=== PATIENT | female | born 1955 | race Caucasian/White ===

== ENCOUNTER 2017-03-13 10:46 | Day surgery (SDC) | payer OTHER, SELFPAY ==
[2017-03-13 11:07] VITALS: BP 142/60; PULSE 57; RESP 18; TEMP 36.6; O2SAT 100; BMI 20.6
--- NOTE | 2017-03-13 12:00 | RAD_ITS ---
PROCEDURE: Caudal block under fluoroscopic guidance. DATE OF EXAMINATION: March 13, 2017. INDICATION: Female, 62 years old. Pain PHYSICIAN: Jose Quijano M.D. FLUOROSCOPY TIME (if supplied): (0:08) minutes/seconds RADIATION DOSAGE (If Supplied By Facility): CTDIvol = ( ) mGy, DLP = ( ) mGycm PROCEDURE/TECHNIQUE: 2 procedural images were performed and sent for interpretation. Both studies demonstrate evidence of contrast in the region of the distal sacrum consistent with caudal block. Please refer to the procedural report for further details. RAD/Fluor Guidance for Spine Inj IMPRESSION: Caudal block in the OR. Electronically Signed: Oni Matthew DO at 13:37 EST Tel [phone], Service support ,
[2017-03-13] MEDS: Bupivacaine 0.25% 30 ML Vial (12:03)
[2017-03-13] MEDS: MethylPREDNISolone Acetate 80 MG/ML Vial (12:03)
[2017-03-13 12:14] VITALS: BP 118/66; BP 142/60; PULSE 58; RESP 16; TEMP 36.6; O2SAT 99
[2017-03-13 12:20] VITALS: BP 118/74; BP 142/60; PULSE 62; RESP 16; O2SAT 97
[2017-03-13 12:25] VITALS: BP 122/83; BP 142/60; PULSE 62; RESP 16; O2SAT 97
[2017-03-13 12:30] VITALS: BP 142/60; BP 144/79; PULSE 58; RESP 16; TEMP 36.8; O2SAT 96
[2017-03-13 12:53] VITALS: BP 142/60
--- NOTE | 2017-03-13 14:35 | OP.PCM_ITS ---
Problem List (1) DDD (degenerative disc disease), lumbosacral Status: Chronic (2) Radiculopathy of lumbosacral region Status: Chronic Report of Operation Date of Procedure: 03/13/17 Pre-Operative Diagnosis: Lumbosacral radiculopathy, lumbosacral degenerative disc disease, lumbosacral spinal stenosis Post-Operative Diagnosis: Lumbosacral radiculopathy, lumbosacral degenerative disc disease, lumbosacral spinal stenosis Surgery/Procedure Performed:: Diagnostic/therapeutic caudal epidural steroid injection Description of Surgical Findings:: PROCEDURE: Diagnostic/therapeutic caudal epidural steroid injection PREOPERATIVE DIAGNOSIS: Lumbosacral radiculopathy, lumbosacral degenerative disc disease, lumbosacral spinal stenosis POSTOPERATIVE DIAGNOSIS: Lumbosacral radiculopathy, lumbosacral degenerative disc disease, lumbosacral spinal stenosis ANESTHESIA: MAC COMPLICATIONS: None BLOOD LOSS: Minimal PROCEDURE IN DETAIL: History and physical today was reviewed. Risks and benefits of the procedure were explained. The patient understood, agreed to our procedure, and informed consent was obtained. IV inserted per routine protocol. The patient was taken to the operating room, placed in a prone position with a pillow positioned underneath the abdomen. Lower back and tailbone area was prepped and draped in a sterile fashion using iodine ?3 under fluoroscopy guidance on the lateral view the caudal space was identified the skin and subcutaneous tissue and size approximately 3 cc of 1% lidocaine using a 25-gauge regular needle under direct visualization with fluoroscopy using a 22-gauge 3-1/2 inch spinal needle the needle was advanced via the skin through the sacral hiatus the peroneal passed through the sacrococcygeal ligament advanced approximately S4 area after negative aspiration for blood or CSF a total of 3 cc of contrast were injected to confirm correct placement of the needle as well as cephalad spread the spread was followed to approximately L5 area after confirmation AP as well as lateral view repeated negative aspiration a total of 15 cc of preservative-free 0.125% Marcaine with 80 mg of Depo-Medrol was injected easily. The needles were then removed intact. The patient experienced no signs or symptoms intrathecal, intravascular injection. The patient experienced no paraesthesia. The procedure was completed without any apparent difficult, any complication. The patient appeared to tolerate well. ASSESSMENT AND PLAN: This is a 62-year-old female with lumbosacral radiculopathy, lumbosacral degenerative disc disease, lumbosacral spinal stenosis status post diagnostic/ therapeutic caudal epidural steroid injection. The patient will continue her current medications. The patient will follow in approximately 2 weeks for possible repeat of the procedure if indicated.
== END 2017-03-13 12:55 | disposition home or self-care (01) ==
LOC: SDC 10:47 → AC 10:48
PROVIDERS: Family Provider Family Medicine; PCP Family Medicine; Visit Provider Anesthesiology Pain Medicine
PROC: 3E0S3BZ Introduction of Anesthetic Agent into Epidural Space, Percutaneous Approach (ICD-10-PCS; CPT 62282; principal; 2017-03-13 11:55)
DX: M51.17 Intervertebral disc disorders with radiculopathy, lumbosacral region (principal); M48.07 Spinal stenosis, lumbosacral region; M79.7 Fibromyalgia
CPT/HCPCS: 01935; 62323; 64483; 77003; J7120; J3490

== ENCOUNTER → 2017-10-20 07:59 | Outpatient (CLI) | payer OTHER, SELFPAY ==
--- NOTE | 2017-10-20 08:32 | BI_ITS ---
MAMMOGRAPHY - BILATERAL SCREENING REASON FOR EXAM: Female, 62 years old. Routine annual screening examination. PERTINENT HISTORY: Non-contributory. TECHNIQUE: Digital bilateral breast janell (3D mammographic acquisition) in the CC and MLO projections. 2-D mediolateral oblique (MLO) and craniocaudad (CC) views of both breasts were obtained. CAD: Full Field Digital Mammography with Computer Added Detection was performed. COMPARISON: Comparison is made with prior study dated October 17, 2016 FINDINGS: Breast Composition: There are scattered areas of fibroglandular density. There are no dominant masses or suspicious calcifications. No other significant abnormalities are identified. There has been no significant change since the prior study. BI/SCREENING MAMM (CAD), BILAT IMPRESSION: Stable bilateral screening mammogram. Yearly follow-up mammogram recommended. (A) ASSESSMENT CATEGORY: BIRADS Category 1: Negative. A letter regarding these results will be sent to the patient by the facility within 30 days. Approximately 10% of breast cancers are not detected by mammography. A normal mammogram should not delay biopsy of a clinically suspicious abnormality. [id number] Electronically Signed: Shane Goode MD at 13:26 EDT Tel [phone], Service support ,
[2017-10-20 11:39] LABS: ALB/GLOB Ratio 1.2 RATIO (0.9-2.4); AST(SGOT) 16 U/L (15-37); Alanine Aminotransfer ALT/SGPT 18 U/L (13-56); Alkaline Phosphatase 90 U/L (45-117); Anion Gap 8 (5-15); BUN 13 mg/dL (7-18); BUN/Creat Ratio 20.1 RATIO (10-20); Calcium,Total 8.8 mg/dL (8.5-10.1); Chloride 106 mmol/L (98-107); Cholesterol 254 mg/dL (200); Creatinine, Serum 0.65 mg/dL (0.55-1.02); EST Glomerular Filtration Rate 98 mL/min (>60); Est Glom Filt Rate - Afr Amer 119 mL/min (>60); Globulin 3.3 g/dL (2.2-4.2); Glucose 73 mg/dL (74-106); High Density Lipoprotein 66 mg/dL; Potassium 3.7 mmol/L (3.5-5.1); Protein, Total 7.3 g/dL (6.4-8.2); Sodium Level 143 mmol/L (136-145); T4 Total, Thyroxin 8.9 ug/dL (4.8-13.9); Thyroid Stim Hormone (TSH) 2.31 uIU/mL (0.358-3.74); Triglycerides 79 mg/dL; Very Low Density Lipoprotein 16 mg/dL (5-40)
== END ==
PROVIDERS: Family Provider Family Medicine; PCP Family Medicine; Visit Provider Nurse Practitioner Adult Health
DX: Z01.419 Encounter for gynecological examination (general) (routine) without abnormal findings (principal); Z12.31 Encounter for screening mammogram for malignant neoplasm of breast; E78.2 Mixed hyperlipidemia; E03.9 Hypothyroidism, unspecified; H04.123 Dry eye syndrome of bilateral lacrimal glands
CPT/HCPCS: 36415; 77063; 77067; 80053; 80061; 84436; 84439; 84443; 84480

== ENCOUNTER 2018-01-29 08:30 | Outpatient (RCR) | payer OTHER, SELFPAY ==
--- NOTE | 2017-02-22 12:41 | MASS.EVAL ---
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 She was referred to the [facility] facility for a massotherapy evaluation by Sherie Alcazar NP with the diagnosis of myofacial pain dysfunction syndrome. Vijaya presents today with the symptoms of tension and pain in her neck, upper, lower back, hips and legs. She reports having a history of chronic back pain, spinal scoliosis and radiating pain in her legs. She reports having minimal limitations during her daily activities currently. OBJECTIVE: Upon observation Vijaya has poor posture with her head forward and shoulders forward from the neutral position in sitting and standing. After examination and palpation I found Vijaya to have very high muscle tension in her scalenes, trapezius, rhomboids, and sub occipitals with restrictions in cervical ROM. Her thoracic paraspinals were tender with restrictions from T7-T12. Her hips, hamstrings and lumbar muscles were also very tight with tender points. The first treatment consisted of a one hour massage to her full body with myofascial release and compression techniques. ASSESSMENT: I feel that Vijaya is a good candidate for massotherapy at this time. She had a favorable response to the first treatment with reduction in her muscle aches, pain and tension. She also had improvement in her cervical and lumbar range of motion with improved flexibility in her neck, back and lower extremities. PLAN: The plan of care was reviewed with the patient. The patient is to be seen on as needed basis for a total of ten sessions with the recommendation of once every four weeks for a one hour treatment.
--- NOTE | 2017-02-22 12:58 | MASS.EVAL_ITS ---
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 She was referred to the [facility] facility for a massotherapy evaluation by Sherie Alcazar NP with the diagnosis of myofacial pain dysfunction syndrome. Vijaya presents today with the symptoms of tension and pain in her neck, upper, lower back, hips and legs. She reports having a history of chronic back pain, spinal scoliosis and radiating pain in her legs. She reports having minimal limitations during her daily activities currently. OBJECTIVE: Upon observation Vijaya has poor posture with her head forward and shoulders forward from the neutral position in sitting and standing. After examination and palpation I found Vijaya to have very high muscle tension in her scalenes, trapezius, rhomboids, and sub occipitals with restrictions in cervical ROM. Her thoracic paraspinals were tender with restrictions from T7-T12. Her hips, hamstrings and lumbar muscles were also very tight with tender points. The first treatment consisted of a one hour massage to her full body with myofascial release and compression techniques. ASSESSMENT: I feel that Vijaya is a good candidate for massotherapy at this time. She had a favorable response to the first treatment with reduction in her muscle aches, pain and tension. She also had improvement in her cervical and lumbar range of motion with improved flexibility in her neck, back and lower extremities. PLAN: The plan of care was reviewed with the patient. The patient is to be seen on as needed basis for a total of ten sessions with the recommendation of once every four weeks for a one hour treatment.
--- NOTE | 2018-01-29 09:40 | DS.PCM_ITS ---
Massage Therapy Discharge Summary: Discharge Date: 01/29/2018 Vijaya was seen for a massotherapy evaluation on 02/22/2017 with the diagnosis of myofacial pain dysfunction syndrome. She was treated with ten sessions of massage therapy consisting of deep pressure soft tissue techniques, myofascial release and trigger point compression to her cervical, thoracic, lower back, upper extremities and hips. Vijaya responded well to the therapy by reporting decreased tension and pain throughout her head, neck, shoulders, lower back and hips. Her goals for therapy were met throughout the treatment sessions. At this time this patient is being discharged from our care at [facility] facility.
== END 2018-01-29 19:00 | disposition home or self-care (01) ==
LOC: MASS 08:30
PROVIDERS: Family Provider Family Medicine; PCP Family Medicine; Visit Provider Nurse Practitioner Family
DX: M79.1 Myalgia (principal)
CPT/HCPCS: 97124

== ENCOUNTER → 2018-08-22 10:04 | Outpatient (CLI) | payer OTHER, SELFPAY ==
[2018-08-22 09:26] VITALS: BMI 20.6
[2018-08-22 11:17] LABS: Vitamin D,25 Hydroxy 17.6 ng/mL (29.95-100.01)
[2018-08-22 11:18] LABS: ALB/GLOB Ratio 1.2 RATIO (0.9-2.4); AST(SGOT) 15 U/L (15-37); Alanine Aminotransfer ALT/SGPT 19 U/L (13-56); Albumin, Serum 4.3 g/dL (3.2-5.0); Alkaline Phosphatase 136 U/L (45-117); Anion Gap 7 (5-15); BUN 15 mg/dL (7-18); BUN/Creat Ratio 21.7 RATIO (10-20); Calcium,Total 9.3 mg/dL (8.5-10.1); Chloride 104 mmol/L (98-107); Cholesterol 264 mg/dL (200); Creatinine, Serum 0.69 mg/dL (0.55-1.02); EST Glomerular Filtration Rate 91 mL/min (>60); Est Glom Filt Rate - Afr Amer 110 mL/min (>60); Globulin 3.5 g/dL (2.2-4.2); Glucose 89 mg/dL (74-106); High Density Lipoprotein 69 mg/dL; Potassium 4.3 mmol/L (3.5-5.1); Protein, Total 7.8 g/dL (6.4-8.2); Sodium Level 141 mmol/L (136-145); T4 Free Direct 0.97 ng/dL (0.76-1.46); Triglycerides 122 mg/dL; Very Low Density Lipoprotein 24 mg/dL (5-40)
[2018-08-27 12:45] LABS: HPV APTIMA, High Risk Negative (Negative)
== END ==
PROVIDERS: Family Provider Family Medicine; PCP Family Medicine; Referring Provider Obstetrics & Gynecology; Visit Provider Obstetrics & Gynecology
DX: Z12.4 Encounter for screening for malignant neoplasm of cervix (principal); Z01.411 Encounter for gynecological examination (general) (routine) with abnormal findings; Z13.220 Encounter for screening for lipoid disorders; Z12.11 Encounter for screening for malignant neoplasm of colon; E55.9 Vitamin D deficiency, unspecified
CPT/HCPCS: 36415; 80053; 80061; 82274; 82306; 84439; 84443; 87624; 88175; G0145

== ENCOUNTER → 2018-10-22 13:29 | Outpatient (CLI) | payer OTHER, SELFPAY ==
[2018-08-22 09:26] VITALS: BMI 20.6
--- NOTE | 2018-10-22 13:32 | BI_ITS ---
MAMMOGRAPHY - BILATERAL SCREENING REASON FOR EXAM: Female, 63 years old. Routine annual screening examination. PERTINENT HISTORY: Non-contributory. TECHNIQUE: Digital bilateral breast umm (3D mammographic acquisition) in the CC and MLO projections. 2-D mediolateral oblique (MLO) and craniocaudad (CC) views of both breasts were obtained. CAD: Full Field Digital Mammography with Computer Added Detection was performed. COMPARISON: Comparison is made with prior study dated October 20, 2017 and October 17, 2016. FINDINGS: Breast Composition: There are scattered areas of fibroglandular density. There are no dominant masses or suspicious calcifications. Stable small bilateral axillary lymph nodes. No other significant abnormalities are identified. There has been no significant change since the prior study. BI/SCREEN MAMM (CAD) W/UMM BILAT IMPRESSION: Stable bilateral screening mammogram. Yearly follow-up mammogram recommended. (A) ASSESSMENT CATEGORY: BIRADS Category 2: Benign. A letter regarding these results will be sent to the patient by the facility within 30 days. Approximately 10% of breast cancers are not detected by mammography. A normal mammogram should not delay biopsy of a clinically suspicious abnormality. [id number] Electronically Signed: Shane oGode, at 15:24 EDT , Service support ,
== END ==
PROVIDERS: Family Provider Family Medicine; PCP Family Medicine; Referring Provider Family Medicine; Visit Provider Family Medicine
DX: Z12.31 Encounter for screening mammogram for malignant neoplasm of breast (principal)
CPT/HCPCS: 77063; 77067

== ENCOUNTER 2019-01-28 08:30 | Outpatient (RCR) | payer OTHER, SELFPAY ==
--- NOTE | 2018-03-01 18:21 | MASS.EVAL ---
Massage Therapy Evaluation: Initial Evaluation Date: 03/01/2018 SUBJECTIVE: Vijaya is a 63 year old female who was referred to the [facility] facility for a massotherapy evaluation by Ramiro Mendieta CNP with the diagnosis of myofascial pain. Vijaya presents today with the symptoms of tension and pain in her neck and shoulders. She also complains of neck and back stiffness with pain intermittently in her low back, bilateral hip tension and right shoulder pain. She also complains of radiating pain in her lower extremities and buttocks. Vijaya reports having a past medical history of arthritis and fibromyalgia. She reports having minimal improvement with exercise and stretching. OBJECTIVE: Upon observation Vijaya has slight head forward in sitting and standing postures. After examination and palpation I found Vijaya to have high muscle tension with tenderness and myofascial restrictions in her sub occipitals, levator scapulae, trapezius, rhomboids, scalenes, and thoracic paraspinals. Her QL?s, lumbar paraspinals, glute medius and minimus all were very tight with fascial restrictions, tender points and trigger points. The first treatment consisted of a one hour massage to her upper body with myofascial release, muscle stripping, trigger point compression techniques, and cervical manual traction. ASSESSMENT: I feel that Vijaya is a good candidate for massotherapy at this time. She had a favorable response to the first treatment with reduction in her muscle aches, pain and tension. She also had improvement in her cervical flexibility and low back flexibility. PLAN: The plan of care was reviewed with the patient. The patient is to be seen on an as needed basis for a total of ten sessions with the recommendation of once every month for a one hour treatment.
--- NOTE | 2019-01-28 09:38 | MASS.DISCH ---
Massage Therapy Discharge Summary: Discharge Date: 01/28/2019 Vijaya was seen for a massotherapy evaluation on 03/01/2018 with the diagnosis of myofascial pain. She was treated with ten sessions of massage therapy consisting of moderate to deep pressure soft tissue techniques, myofascial release and trigger point compression to her cervical, thoracic, lower back, upper extremities, lower extremities and hips. Vijaya responded well to the therapy by reporting decreased tension and pain throughout her head, neck, shoulders, lower back and hips. Her goals for therapy were met throughout the treatment sessions. At this time this patient is being discharged from our care at [facility] facility.
== END 2019-01-28 13:12 | disposition home or self-care (01) ==
LOC: MASS 08:30
PROVIDERS: Family Provider Family Medicine; PCP Family Medicine; Referring Provider Nurse Practitioner Family; Visit Provider Nurse Practitioner Family
DX: M54.5 Low back pain (principal); M79.18 Myalgia, other site; G89.29 Other chronic pain
CPT/HCPCS: 97124

== ENCOUNTER 2019-02-18 08:30 | Outpatient (RCR) | payer OTHER, SELFPAY ==
[2018-08-22 09:26] VITALS: BMI 20.6
--- NOTE | 2019-01-16 16:46 | HP.PTEVAL ---
Patient's Visit Information JEN BARBER is a 63 year old F referred to Physical Therapy by Steve Pineda MD with a diagnosis of MUSCLE PAIN/FIBROMYALGIA. Date of Evaluation: 01/16/19 Physical Therapist: Patricia Calderon PT, Cert MDT - Visit Plan Frequency: 2-3x /Week Duration: 4-6 Weeks Plan: US, E-STIM, MH, POSTURE CORRECTION/STRENGTHENING, INSTRUCTION IN APPROPRIATE BODY MECHANICS AND ACTIVITY MODIFICATIONS. DLS STARTING WITH A NEUTRAL SPINE PROGRESSING ROM TOLERATED. LARISA LE ROM, STRETCHING AND STRENGTHENING. HEP INSTRUCTION. 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 Disability: NO. Present symptoms: LOW BACK PAIN AND LARISA BUTTOCK PAIN - PATIENT REPORTS SHE IS HERE FOR THE PAIN IN HER BUTT. PATIENT REPORTS HER SHOULDERS HURT A LOT TOO. Present since: ABOUT 4 YEARS. Pain Scale: WORST 2/10, LEAST 0/10. Currently: /10. Commenced as a result of: SITTING TO RECOVER FROM LEFT SHLD IMPINGEMENT (OFF WORK ABOUT 3 MONTHS). Symptoms at onset: LOW BACK AND LARISA BUTTOCK PAIN. Worse: JUST SITTING OR PUSHING ON IT. Better: NOT SITTING, MUSCLE RELAXERS - ALMOST INSTANT RELIEF WHEN STARTED THE MUSCLE RELAXER ABOUT 2 WEEKS AGO. AVG PAIN DECREASED FROM 10/10 TO 2/10 AND HAS BEEN HAVING PAIN WITH SITTING FOR YEARS NOW. Disturbed sleep: YES. Previous history/Previous treatment: H/O PHYSICAL THERAPY AND HARRISON'S. MASSAGE. H/O SCIATICA RIGHT - INTERMITTENT FLARE UPS. H/O THORACIC SPONDYLOSIS. Coughing/sneezing/straining: NEGATIVE. Gait: NORMAL. Difficulty initiating urinatin: NO. Accidents: NO. Unexplained weight loss: NO. Imaging: NONE RECENT. PMH: FIBROMYALGIA, LONG HISTORY OF LEFT SHOULDER PROBLEMS - LABRAL TEAR - UNREPAIRED. FELL OFF HORSE ABOUT 30 YEARS AGO - LANDED ON SPINE/TAILBONE - EVENTUALLY REGAINED USE OF IT WITH THERAPY. OSTEOPENIA. Recent major surgery: UNREMARKABLE. - Objective Sitting/Standing Posture: POOR. Lordosis: REDUCED. Lateral shift: NO. Relevant shift: N/A. Active Correction of posture: NE. Other Observations: INDEP GAIT AND TRANSFERS. Motor deficit: LARISA LE'S GROSSLY 5/5 WITH MMT'ING EXCEPT RIGHT HIP 4-/5, LEFT HIP 4/5. Sensory deficit: LARISA LE LIGHT TOUCH SENSATION INTACT AND SYMMETRICAL. ROM deficit: TIGHT LARISA HS'S AND GASTROC SOLEUS COMPLEX'S. Reflexes: 2/3 LARISA LE'.S. Dural Signs: POSTITIVE LARISA LE'S. Lumbar mvmt loss: flex - NIL. ext - MOD. R SG - MOD. L SG - MOD. Core strength: POOR. Palpation: TENDERNESS WITH PALPATION OF THE L45S1 AND SACRAL AREAS. - Goals Goal 1:: DECREASE C/O LARISA BUTTOCK PAIN Goal Time Frame: 4-6 Weeks Goal 2:: IMPROVE LIFTING, SITTING, STANDING, TRAVEL AND HOMEMAKING FUNCTION. Goal Time Frame: 4-6 Weeks Goal 3:: INSTRUCT IN PROPHYLAXIS Goal Time Frame: 4-6 Weeks - Rehabilitation Potential Rehabilitation Potential: Fair - Anticipated Interventions Patient/Client Instruction: Educate patient on: Condition, Plan of Care, Risk Factors, Benefits of Fitness Program For the Purpose of:: To improve self management Therapeutic Exercise to Include: Strength training, Body mechanics, Postural training, In an aquatic setting, Dynamic Lumbar Stabilization, Scapular Strength/Stabilization Comment: DISCUSSED POSSIBLE BENEFITS OF AQUATIC THERAPY AND TO BE CONSIDERED IN FUTURE BASED ON RESPONSE TO CURRENT PLAN. For the Purpose of:: To decrease pain, To increase ROM, To improve muscle performance and motor function, To increase tolerance to activity/condition/position, To improve ability of physical actions for home/community/work/leisure TENS: Yes IF ES: Yes Thermo therapy (hot pack): Yes Ultrasound (thermal/non thermal): Yes For the Purpose of:: To decrease pain, To decrease swelling/inflammation, To improve nutrient delivery to tissue Thank you for the opportunity to evaluate your patient. For Medicare and Medicare HMO plans, please review the plan of care and approve it. It will need to be FAXED BACK to us at [phone] for Medicare purposes. For Medicare only, by signing this I certify the plan of care. Please let me know if there are questions or concerns regarding this plan of care. Physician Signature: Date:
--- NOTE | 2019-04-12 09:04 | HP.PT.NRP ---
HP - Discharge Summary (1) - Patient Information JEN BARBER was seen in my office for initial evaluation on 01/16/19. The following Plan of Care was established for this patient: Initial Frequency: 2-3x /Week Initial Duration: 4-6 Weeks - Anticipated Interventions Patient/Client Instruction: Educate patient on: Condition, Plan of Care, Risk Factors, Benefits of Fitness Program For the Purpose of:: To improve self management Therapeutic Exercise to Include: Strength training, Body mechanics, Postural training, In an aquatic setting, Dynamic Lumbar Stabilization, Scapular Strength/Stabilization For the Purpose of:: To decrease pain, To increase ROM, To improve muscle performance and motor function, To increase tolerance to activity/condition/position, To improve ability of physical actions for home/community/work/leisure TENS: Yes IF ES: Yes Thermo therapy (hot pack): Yes Ultrasound (thermal/non thermal): Yes For the Purpose of:: To decrease pain, To decrease swelling/inflammation, To improve nutrient delivery to tissue This patient was last seen in our office 02/18/19. Pertinent comments regarding their Physical therapy will appear below: This patient has not returned to Physical Therapy and is appropriate to return to MD for further follow-up as needed. At this point I will be discontinuing this patient from physical therapy. I would be happy to see this patient again in the future if found appropriate by the physician. Thank you! Patricia Calderon, PT, Cert MDT
== END 2019-02-18 19:00 | disposition home or self-care (01) ==
LOC: PT 08:30
PROVIDERS: Family Provider Family Medicine; PCP Family Medicine; Referring Provider Family Medicine; Visit Provider Family Medicine
DX: M79.7 Fibromyalgia (principal)
CPT/HCPCS: 97014; 97035; 97110; 97162; 97530; G0283

== ENCOUNTER → 2019-10-22 | Outpatient (CLI) | payer OTHER, SELFPAY ==
[2019-09-05 09:51] VITALS: BMI 20.6
[2019-10-22 12:10] LABS: Thyroid Stim Hormone (TSH) 2.17 uIU/mL (0.358-3.74)
[2019-10-22 12:39] LABS: Hepatitis C Antibody Non-Reactive (Nonreactive); Vitamin D,25 Hydroxy 27.6 ng/mL
--- NOTE | 2019-10-22 13:08 | RAD_ITS ---
STUDY: X-RAY - LEFT SHOULDER REASON FOR EXAM: Female, 64 years old. PAIN AND NUMBNESS LEFT SHOULDER -- TINGLING DOWN LEFT ARM -- NO RECENT FALLS TECHNIQUE: 3 view(s) of the shoulder. COMPARISON: May 27, 2014 left shoulder x-ray FINDINGS: Normal glenohumeral articulation. Normal acromioclavicular joint. Normal acromion. Normal humeral head and visualized proximal humerus. The soft tissue structures are unremarkable. Normal visualized pulmonary apex. RAD/Shoulder min 2 Views IMPRESSION: Normal x-ray examination of the shoulder. Electronically Signed: Jennifer Edwards MD at 6:31 EDT Tel , Service support ,
== END | disposition home or self-care (01) ==
PROVIDERS: PCP Family Medicine; Referring Provider Obstetrics & Gynecology; Visit Provider Obstetrics & Gynecology
DX: E55.9 Vitamin D deficiency, unspecified (principal); M25.512 Pain in left shoulder; Z13.29 Encounter for screening for other suspected endocrine disorder; Z13.21 Encounter for screening for nutritional disorder
CPT/HCPCS: 36415; 73030; 82306; 84439; 84443; 86803

== ENCOUNTER → 2019-12-24 10:13 | Outpatient (CLI) | payer OTHER, SELFPAY ==
[2019-11-21 13:24] VITALS: BMI 20.1
--- NOTE | 2019-12-24 10:15 | BI_ITS ---
MAMMOGRAPHY - BILATERAL SCREENING REASON FOR EXAM: Female, 64 years old. Routine annual screening examination. PERTINENT HISTORY: Non-contributory. TECHNIQUE: Digital bilateral breast umm (3D mammographic acquisition) in the CC and MLO projections. 2-D mediolateral oblique (MLO) and craniocaudad (CC) views of both breasts were obtained. CAD: Full Field Digital Mammography with Computer Added Detection was performed. COMPARISON: Comparison is made with prior study dated 10/22/2018 and 10/20/2017. FINDINGS: Breast Composition: There are scattered areas of fibroglandular density. There are no dominant masses or suspicious calcifications. Stable small benign appearing bilateral axillary No other significant abnormalities are identified. There has been no significant change since the prior study. BI/SCREEN MAMM (CAD) W/UMM BILAT IMPRESSION: Stable bilateral screening mammogram. Yearly follow-up mammogram recommended. (A) ASSESSMENT CATEGORY: BIRADS Category 2: Benign. A letter regarding these results will be sent to the patient by the facility within 30 days. Approximately 10% of breast cancers are not detected by mammography. A normal mammogram should not delay biopsy of a clinically suspicious abnormality. [id number] Electronically Signed: Shane Goode, at 11:23 EST , Service support ,
== END ==
PROVIDERS: PCP Internal Medicine; Referring Provider Internal Medicine; Visit Provider Internal Medicine
DX: Z12.31 Encounter for screening mammogram for malignant neoplasm of breast (principal)
CPT/HCPCS: 77063; 77067

== ENCOUNTER 2020-02-03 08:30 | Outpatient (RCR) | payer OTHER, SELFPAY ==
[2018-08-22 09:26] VITALS: BMI 20.6
--- NOTE | 2019-02-28 18:24 | MASS.EVAL_ITS ---
Massage Therapy Evaluation: Initial Evaluation Date: 02/28/2019 SUBJECTIVE: Vijaya is a 64 year old female who was referred to the [facility] for a massotherapy evaluation by Dr. Pineda with the diagnosis of myofascial pain. She presents today with the symptoms of pain, stiffness and tension in the neck, mid back, low back and hips. Vijaya reports having a past medical history of chronic pain and tension in her neck, shoulders and low back related to her posture and stress. She also has a history of fibromyalgia. She reports having minimal improvement with exercise and stretching. OBJECTIVE: Upon observation Vijaya has some posture issues with her head and shoulders forward from the neutral position in sitting and standing. After examination and palpation, I found Vijaya to have high muscle tension with tenderness and myofascial restrictions in her sub occipitals, levator scapulae, trapezius, rhomboids, scalenes, and thoracic paraspinals. Her QL?s, lumbar paraspinals, piriformis, glute medius and minimus all were very tight with fascial restrictions, tender points and trigger points. The first treatment consisted of a one hour massage to her upper body with myofascial release, muscle stripping, trigger point compression techniques, and cervical manual traction. ASSESSMENT: I feel that Vijaya is a good candidate for massotherapy at this time. She had a favorable response to the first treatment with reduction in her muscle aches, pain and tension. She also had improvement in her cervical flexibility and low back flexibility. PLAN: The plan of care was reviewed with the patient. The patient is to be seen on an as needed basis for a total of ten sessions with the recommendation of once every month for a one hour treatment.
--- NOTE | 2020-02-03 11:10 | DS.PCM_ITS ---
Massage Therapy Discharge Summary: Discharge Date: 02/03/2020 Vijaya was seen for a massotherapy evaluation on 02/28/2019 with the diagnosis of myofascial pain. She was treated with six sessions of massage therapy consisting of deep pressure soft tissue techniques, myofascial release and trigger point compression to her cervical, thoracic, lower back, lower extremities and hips. Vijaya responded well to the therapy by reporting decreased tension and pain throughout her neck, shoulders, lower back and hips. Her goals for therapy were met throughout the treatment sessions. At this time this patient is being discharged from our care at [facility] facility.
== END 2020-02-03 19:00 | disposition home or self-care (01) ==
LOC: MASS 08:30
PROVIDERS: Family Provider Family Medicine; PCP Family Medicine; Referring Provider Family Medicine; Visit Provider Family Medicine
DX: M54.5 Low back pain (principal); G89.29 Other chronic pain
CPT/HCPCS: 97124

== ENCOUNTER → 2020-09-22 14:40 | Outpatient (CLI) | payer OTHER, SELFPAY ==
[2020-09-07 11:03] VITALS: BMI 20.1
--- NOTE | 2020-09-22 14:49 | BD_ITS ---
STUDY: DUAL ENERGY X-RAY ABSORPTIOMETRY / DXA REASON FOR EXAM: Female, 65 years old. Estrogen deficiency. TECHNIQUE: Bone Mineral Density (BMD) measurements of lumbar spine and bilateral hips were obtained. COMPARISON: Comparison is made with prior examination dated 02/07/2017. FINDINGS: Lumbar Spine (L1-L4): g/cm2 (0.597) / T-score (-4.1) / Z-score (-2.3) Findings are suggestive of osteoporosis with a high fracture risk. Left Femur Total: g/cm2 (0.510) / T-score (-3.5) / Z-score (-2.3) Left Femoral Neck: g/cm2 (0.431) / T-score (-3.8) / Z-score (-2.2) Right Femur Total: g/cm2 (0.543) / T-score (-3.3) / Z-score (-2.0) Right Femoral Neck: g/cm2 (0.418) / T-score (-3.9) / Z-score (-2.3) The T-Scores on the most recent prior examination were: Lumbar Spine (L1-L4): There has been worsening of bone density since the previous examination. Left Femur Total: which represents a worsening of 6.2%. Right Femur Total: which represents a worsening of 2.1%. BD/Dexa Bone Density Study IMPRESSION: The patient is considered osteoporotic as outlined below according to World Deep Organization (WHO) criteria with a high fracture risk. There has been worsening of bone density since the previous examination. Reference Information: The T-score is the number of standard deviations above or below the standard which is normal for young adults at their peak bone mineral density. The World Health Organization (WHO) interprets the T-scores as follows: Above -1 Normal bone density Between -1 and -2.5 Osteopenia Equal to / or below -2.5 Osteoporosis As a practical clinical guideline, osteopenia may be graded as follows: Mild -1 through -1.5 Moderate -1.6 through -2.0 Severe -2.1 through -2.4 The Z-score is the number of standard deviations above or below age-matched controls. A Z-score of less than -1.5 would be considered abnormal. References: 1. NIH Osteoporosis and Related Bone Diseases www osteo.org 2. International Society for Clinical Densitometry www iscd.org 3. National Osteoporosis Foundation www nof.org Electronically Signed: Shane Goode MD at 14:13 EDT , Service support ,
== END ==
PROVIDERS: PCP Family Medicine; Referring Provider Obstetrics & Gynecology; Visit Provider Obstetrics & Gynecology
DX: E28.39 Other primary ovarian failure (principal); Z79.818 Long term (current) use of other agents affecting estrogen receptors and estrogen levels
CPT/HCPCS: 77080

== ENCOUNTER → 2020-11-06 08:34 | Outpatient (CLI) | payer OTHER, SELFPAY ==
[2020-11-06 10:00] LABS: Vitamin D,25 Hydroxy 23.7 ng/mL
[2020-11-06 10:52] LABS: Thyroid Stim Hormone (TSH) 2.87 uIU/mL (0.358-3.74)
== END ==
PROVIDERS: PCP Family Medicine; Visit Provider Obstetrics & Gynecology
DX: Z01.419 Encounter for gynecological examination (general) (routine) without abnormal findings (principal)
CPT/HCPCS: 82306; 84443

== ENCOUNTER 2020-11-23 17:44 | Outpatient (CLI) | payer OTHER, SELFPAY ==
[2020-11-23] MEDS: 0.9% Saline Lock 10 ML Syringe IV (17:59)
[2020-11-23 18:03] VITALS: BP 125/75; PULSE 83; RESP 16; TEMP 37.2; O2SAT 97; BMI 20.3
[2020-11-23 18:37] VITALS: BP 131/73; PULSE 75; RESP 16; TEMP 37.4; O2SAT 99
[2020-11-23 19:35] VITALS: BP 146/71; PULSE 79; RESP 16; TEMP 37.3; O2SAT 98
== END 2020-11-23 19:37 | disposition home or self-care (01) ==
LOC: MS3OUT 17:44 → MS3 17:45
PROVIDERS: PCP Family Medicine; Referring Provider Nurse Practitioner Adult Health; Visit Provider Nurse Practitioner Adult Health
DX: Z23 Encounter for immunization (principal); U07.1 COVID-19
CPT/HCPCS: J7050; M0243; A4216; Q0244

== ENCOUNTER 2020-11-26 13:17 | Emergency (ER) | payer OTHER, SELFPAY ==
[2020-11-26 13:18] VITALS: BP 147/102; PULSE 87; RESP 16; TEMP 36.7; O2SAT 98; BMI 20.6
--- NOTE | 2020-11-26 13:50 | RAD_ITS ---
STUDY: X-RAY CHEST REASON FOR EXAM: Female, 65 years old. chest pain TECHNIQUE: AP COMPARISON: None. FINDINGS: EKG leads project over the chest. The lungs are clear and expanded. There is no demonstrated pleural abnormality. Normal size heart. Normal mediastinum and kalani. Normal visualized pulmonary arteries. Normal visualized aortic arch and descending thoracic aorta. Normal visualized thoracic spine. Normal visualized ribs, clavicles, and shoulders. There is no demonstrated abnormality of the visualized soft tissue structures of the upper abdomen. RAD/Chest 1 View (Portable) IMPRESSION: Nonacute portable x-ray examination of the chest. Electronically Signed: Ramon Wagner MD ([place]) at 14:16 EDT , Service support ,
--- NOTE | 2020-11-26 14:09 | ED.VIS.CHEST ---
HPI History of Present Illness Chief Complaint: Chest Pain Informant: patient Onset/Context/Timing Onset: Days Narrative Narrative: Patient presents with continuous chest pressure for 10 days. No radicular symptoms. Diagnosed with Covid 3 days ago. Had headache myalgia's loose stools loss of taste and smell. She states most of is recovered. Only mild cough. Yesterday increased intensity of pressure that got her concerned. No cardiac history. Heart cath 10 to [address] Mayer. Vaccinated 1 of 2 in June. History of hypercholesterolemia. Denies any cardiac intervention history. Stress test over 10 years ago. Currently subsided. Only mild cough remaining. Denies any dyspnea or exertional dyspnea. Prior Similar Symptoms: No CVD Risk Factors: Positive for Hypercholesterolemia PFSH PFSH Medical History Back problem Chronic bronchitis Fibromyalgia H/O emotional problems High cholesterol Hyperlipemia IBS (irritable bowel syndrome) Ischemic colitis Osteopenia Osteoporosis Seasonal allergies Vitamin D deficiency Vitamin D deficiency Home Medications multivitamin,yl-hitv-dwbsrosb 1 tab PO DAILY 09/05/19 [History Last Taken Unknown] famciclovir 125 mg tablet 125 mg PO .prn tab 11/21/19 [History Last Taken Unknown] cholecalciferol (vitamin D3) 1,250 mcg PO MO 11/23/20 [History Last Taken Unknown] Allergy/AdvReac Type Severity Reaction Status Date / Time codeine Allergy Rash Verified 11/26/20 13:22 latex Allergy Rash Verified 11/26/20 13:22 lidocaine Allergy Rash Verified 11/26/20 13:22 morphine AdvReac Nausea Verified 11/26/20 13:22 NSAIDS (Non-Steroidal AdvReac Other Verified 11/26/20 13:22 Anti-Inflamma black cohash Allergy Mild swelling Uncoded 11/26/20 13:22 of veins muscle relaxer Allergy Mild dyspnea Uncoded 11/26/20 13:22 stitches AdvReac Itching Uncoded 11/26/20 13:22 Family History Father Cancer Aunt Kidney disease Surgical History H/O tubal ligation Social History adopted: No household members: family housing: house number of children: 1 current occupational status: employed current occupation: [employer] current occupational exposures/hazards: No pets and animals: Yes history of recent travel: No sexually active: Yes Smoking Status: Never smoker second hand exposure: No alcohol intake: never substance use type: does not use caffeine: Yes what type of physical activity do you participate in: none seatbelt use: always do you feel safe at home: Yes additional social history: Spouse- Won liu for [employer] 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 ROS ROS ED Constitutional Constitutional ED: Denies chills, fever(s) or sweats Eyes Eyes: Denies change in vision ENT ENT ED: Denies dysphagia or sore throat Cardiovascular Cardiovascular: Reports chest pain; Denies leg edema, palpitations or racing heartbeat Respiratory/Chest Respiratory/Chest: Denies cough, dyspnea or dyspnea on exertion Gastrointestinal Gastrointestinal: Denies abdominal pain, diarrhea, nausea or vomiting Genitourinary Genitourinary ED: Denies dysuria, hematuria or urinary frequency Musculoskeletal Musculoskeletal: Denies back pain, extremity pain or neck pain Integumentary Denies rash or wounds Neurologic Neurologic: Denies headache(s), paresthesias or weakness EXAM Physical Exam Const Vital Signs: 11/26/20 13:18 11/26/20 13:51 11/26/20 14:29 Temperature 98.1 F Temperature Source Temporal Pulse Rate 87 71 Respiratory Rate 16 18 Blood Pressure 147/102 H 163/138 H Blood Pressure Mean 117 146 Pulse Ox 98 94 Oxygen Delivery Method Room Air Room Air Room Air 11/26/20 15:07 Temperature Temperature Source Pulse Rate 72 Respiratory Rate Blood Pressure Blood Pressure Mean Pulse Ox Oxygen Delivery Method Positive well nourished and well developed General Appearance ED: well developed and NAD HEENT Reports moist mucous membranes normocephalic and atraumatic Eyes PERRL, EOMs intact bilaterally and conjunctivae normal General Eye ED: Yes normal appearance of both eyes Neck no lymphadenopathy and supple General: Negative for tenderness Chest Wall Chest: Negative for tenderness Resp normal respiratory effort and normal air movement Effort and Inspection: symmetric chest movement; Negative for respiratory distress Cardio regular rate, regular rhythm and no murmurs Peripheral Pulses: pulses 2+ throughout GI normal to inspection, nondistended, normoactive bowel sounds and non-tender Palpation: Negative for guarding or rebound tenderness present Back/Spine no CVA tenderness and no thoracic nor lumbar tenderness Extremity normal to inspection General Extremety ED: Negative for edema or tenderness General Extremity: Negative for edema Neuro oriented x3 and no sensory deficits noted Sensorium / Orientation: awake and alert Skin no rashes or lesions noted and no wounds Heart Score History: Slightly/Non-Suspicious ECG: Normal Age: >/= 65 years Risk Factors: 1 or 2 Risk Factors Troponin: </= Normal Limit Score: 3 MDM MDM MDM Narrative Medical decision making narrative: EKG normal chest x-ray normal. Labs all stable troponin at 4. Persistent pressure for 10 days with negative troponin less likely cardiac in nature. She denies dyspnea or exertional dyspnea for concerns of PE. She is recovering from Covid with symptoms to clearly more improved. She will follow-up with her PCP. Return precautions. All questions answered. Lab Data Attestation: I reviewed the patient's lab results. Labs: Laboratory Results - last 24 hr 11/26/20 11/26/20 13:45 13:45 WBC 4.9 RBC 5.10 Hgb 14.9 Hct 44.0 MCV 86.3 MCH 29.2 MCHC 33.9 RDW Std Deviation 37.6 RDW Coeff of Cindy 11.9 Plt Count 321 MPV 10.4 Immature Gran % (Auto) 0.200 Neut % (Auto) 55.2 Lymph % (Auto) 34.0 Gilliam % (Auto) 8.6 Eos % (Auto) 1.6 Baso % (Auto) 0.4 Absolute Neuts (auto) 2.7 Absolute Lymphs (auto) 1.66 Nucleated RBC % 0 Sodium 139 Potassium 4.0 Chloride 102 Carbon Dioxide 30.0 Anion Gap 7 BUN 9 Creatinine 0.68 Estim Creat Clear Calc 65.23 Est GFR (MDRD) Af Amer 112 Est GFR (MDRD) Non-Af 92 BUN/Creatinine Ratio 13.3 Glucose 101 Calcium 9.8 Troponin I High Sens 4 Radiography Chest X-Ray - ED: 1 View, Read by ED Physician and Read by Radiologist Diagnostic Testing: Clinical Impression(s) from Imaging Studies Chest X-Ray 11/26/20 13:50 IMPRESSION: Nonacute portable x-ray examination of the chest. Electronically Signed: Ramon Wagner MD ([place]) at 14:16 EDT , Service support , EKG Initial EKG: Attestation: I personally reviewed and interpreted this EKG as follows: Comments: Sinus rate of 77, no ST or T wave changes. Discharge Plan Triage Chief Complaint: Chest Pain ED Provider: Gabriele Samson Dx/Rx/DC Orders Clinical Impression: COVID-19, Chest pain Instructions: Coronavirus Disease 2019 (COVID-19): Overview, ED Chest Pain, Uncertain Cause Prescriptions: No Action multivitamin,ts-xvvb-ekzgursc tablet 1 tab PO DAILY RF: 0 famciclovir 125 mg tablet 125 mg PO .prn RF: 0 cholecalciferol (vitamin D3) 1,250 mcg (50,000 unit) capsule 1,250 mcg PO MO RF: 0 Primary Care Provider: Steve Pineda Referrals: Steve Pineda MD [Primary Care Provider] - 3-5 Days Disposition Disposition: Home, Self Care Discharge Date/Time: 11/26/20 15:14
[2020-11-26 14:17] LABS: Absolute Lymphocyte Count 1.66 X10^3/uL (0.83-4.51); Absolute Neutrophil Count 2.7 X10^3/uL (2.0-7.7); Basophil# 0.02 X10^3/uL; Basophil% 0.4 % (0-1); Eosinophil# 0.08 X10^3/uL; Eosinophils% 1.6 % (0-5); Hemoglobin 14.9 g/dL (12.0-15.0); Lymphocyte # 1.66 X10^3/ul (0.83-4.51); Mean Corp Hgb Conc 33.9 g/dL (32-36); Mean Corpuscular Hgb 29.2 pg (27.0-32.0); Mean Corpuscular Volume 86.3 fL (81-99); Mean Platelet Vol. 10.4 fl (6.2-12.0); Monocyte# 0.42 X10^3/uL; Monocyte% 8.6 % (0-10); NRBC Flagged by Analyzer 0 % (0-5); Neutrophil # 2.69 X10^3/uL (2.7-7.7); Neutrophil % 55.2 % (47-70); Platelet Count 321 K/mm3 (150-450); RBC Distribution Width CV 11.9 % (11.6-14.6); RBC Distribution Width SD 37.6 fl (35.1-43.9); White Blood Count 4.9 K/mm3 (4.4-11.0)
[2020-11-26 14:27] LABS: Anion Gap 7 (5-15); BUN 9 mg/dL (7-18); BUN/Creat Ratio 13.3 RATIO (10-20); Calcium,Total 9.8 mg/dL (8.5-10.1); Chloride 102 mmol/L (98-107); Creatinine, Serum 0.68 mg/dL (0.55-1.02); EST Glomerular Filtration Rate 92 mL/min (>60); Est Glom Filt Rate - Afr Amer 112 mL/min (>60); Estimated Creatinine Clearance 65.23 ml/min; Glucose 101 mg/dL (74-106); Sodium Level 139 mmol/L (136-145); Troponin-I HS 4 pg/mL (3.0-54.0)
[2020-11-26 14:29] VITALS: BP 163/138; PULSE 71; RESP 18; O2SAT 94
[2020-11-26 15:07] VITALS: PULSE 72
== END 2020-11-26 15:14 | disposition home or self-care (01) ==
PROVIDERS: Emergency Provider Emergency Medicine; PCP Family Medicine
DX: U07.1 COVID-19 (principal); R07.89 Other chest pain; M79.7 Fibromyalgia; E78.5 Hyperlipidemia, unspecified
CPT/HCPCS: 71045; 80048; 84484; 85025; 93005; 99284; A4216

== ENCOUNTER 2020-12-17 14:00 | Outpatient (RCR) | payer OTHER, SELFPAY | END 2021-01-05 23:59 | LOC: NS 14:00 | PROVIDERS: PCP Family Medicine; Visit Provider Internal Medicine Endocrinology, Diabetes & Metabolism | DX: Z71.3 Dietary counseling and surveillance (principal); M81.0 Age-related osteoporosis without current pathological fracture; E55.9 Vitamin D deficiency, unspecified | CPT/HCPCS: 97802 ==

== ENCOUNTER → 2020-12-24 09:43 | Outpatient (CLI) | payer OTHER, SELFPAY ==
[2019-11-21 13:24] VITALS: BMI 20.1
--- NOTE | 2020-12-24 09:43 | BI_ITS ---
MAMMOGRAPHY - BILATERAL SCREENING REASON FOR EXAM: Female, 65 years old. Routine annual screening examination. PERTINENT HISTORY: Non-contributory. TECHNIQUE: Digital bilateral breast umm (3D mammographic acquisition) in the CC and MLO projections. 2-D mediolateral oblique (MLO) and craniocaudad (CC) views of both breasts were obtained. CAD: Full Field Digital Mammography with Computer Added Detection was performed. COMPARISON: Comparison is made with prior study dated 12/24/2019 and 10/22/2018. FINDINGS: Breast Composition: There are scattered areas of fibroglandular density. There are no dominant masses or suspicious calcifications. Stable small benign-appearing bilateral axillary lymph nodes. No other significant abnormalities are identified. There has been no significant change since the prior study. BI/SCRN MAMM (CAD)W/UMM BILAT IMPRESSION: Stable bilateral screening mammogram. Yearly follow-up mammogram recommended. (A) ASSESSMENT CATEGORY: BIRADS Category 2: Benign. A letter regarding these results will be sent to the patient by the facility within 30 days. Approximately 10% of breast cancers are not detected by mammography. A normal mammogram should not delay biopsy of a clinically suspicious abnormality. [id number] Electronically Signed: Shane Goode MD at 10:23 EST , Service support ,
== END ==
PROVIDERS: PCP Family Medicine; Referring Provider Obstetrics & Gynecology; Visit Provider Obstetrics & Gynecology
DX: Z12.31 Encounter for screening mammogram for malignant neoplasm of breast (principal)
CPT/HCPCS: 77063; 77067

== ENCOUNTER 2021-01-21 10:15 | Outpatient (RCR) | payer OTHER, SELFPAY ==
[2019-11-21 13:24] VITALS: BMI 20.1
--- NOTE | 2020-02-17 15:18 | MASS.EVAL ---
Massage Therapy Evaluation: Initial Evaluation Date: 02/11/2020 SUBJECTIVE: Vijaya is a 65 year old female who was referred to the [facility] for a massotherapy evaluation by Dr. Pineda with the diagnosis of fibromyalgia and thoracic myofascial strain. She presents today with the symptoms of pain, stiffness and tension in the neck, mid back, low back and hips. Vijaya reports having a past medical history arthritis and chronic pain in her neck and back. She reports having minimal improvement with exercise and stretching over the last few months. OBJECTIVE: Upon observation Vijaya has some posture issues with her head and shoulders forward from the neutral position in sitting and standing. After examination and palpation, I found Vijaya to have high muscle tension with tenderness and myofascial restrictions in her sub occipitals, levator scapulae, trapezius, rhomboids, scalenes, and thoracic paraspinals. Her QL?s, lumbar paraspinals, piriformis, glute medius and minimus all were very tight with fascial restrictions, tender points and trigger points. The first treatment consisted of a one hour massage to her upper body with myofascial release, muscle stripping, trigger point compression techniques, and cervical manual traction. ASSESSMENT: I feel that Vijaya is a good candidate for massotherapy at this time. She had a favorable response to the first treatment with reduction in her muscle aches, pain and tension. She also had improvement in her cervical flexibility and low back flexibility. PLAN: The plan of care was reviewed with the patient. The patient is to be seen on an as needed basis for a total of ten sessions with the recommendation of once every month for a one hour treatment.
--- NOTE | 2021-01-21 13:10 | MASS.DISCH ---
Massage Therapy Discharge Summary: Discharge Date: 01/21/2021 Vijaya was seen for a massotherapy evaluation on 02/11/2020 with the diagnosis of fobromyalgia. She was treated with ten sessions of massage therapy consisting of deep pressure soft tissue techniques, myofascial release and trigger point compression to his cervical, thoracic, lower back and hips. Vijaya responded well to the therapy by reporting decreased tension and pain throughout her neck, shoulders, lower back, lower extremities and hips. Her goals for therapy were met throughout the treatment sessions. At this time this patient is being discharged from our care at [facility] facility.
== END 2021-01-21 19:00 | disposition home or self-care (01) ==
LOC: MASS 10:15
PROVIDERS: PCP Internal Medicine; Visit Provider Family Medicine
DX: M79.7 Fibromyalgia (principal); S29.019D Strain of muscle and tendon of unspecified wall of thorax, subsequent encounter
CPT/HCPCS: 97124

== ENCOUNTER 2021-02-11 13:43 | Outpatient (CLI) | payer OTHER, SELFPAY ==
[2021-02-11 13:56] VITALS: BP 147/66; PULSE 72; RESP 16; TEMP 36.3; O2SAT 100
[2021-02-11] MEDS: DENOSUMAB 60 MG/ML SC (13:57)
== END 2021-02-11 23:59 | disposition short-term general hospital (02) ==
LOC: MEDOUTP 13:44
PROVIDERS: PCP Internal Medicine; Referring Provider Internal Medicine Endocrinology, Diabetes & Metabolism; Visit Provider Internal Medicine Endocrinology, Diabetes & Metabolism
DX: M81.0 Age-related osteoporosis without current pathological fracture (principal)
CPT/HCPCS: 96372; J0897

== ENCOUNTER 2021-02-19 12:23 | Outpatient (CLI) | payer OTHER, SELFPAY ==
--- NOTE | 2021-02-19 15:44 | RAD_ITS ---
STUDY: X-RAY - LUMBAR SPINE REASON FOR EXAM: Female, 66 years old. LOW BACK PAIN TECHNIQUE: 4 view(s) of the lumbar spine were obtained. COMPARISON: None FINDINGS: Normal lumbar lordosis. Mild levoscoliosis of the lumbar spine centered at L3. There is a normal alignment of the vertebrae. Normal vertebral bodies and endplates. Normal disc space heights. Facet hypertrophy lower lumbar spine. The soft tissue structures are unremarkable. RAD/L/S Spine Min 4 Views IMPRESSION: Mild levoscoliosis with degenerative disc disease. Electronically Signed: Silvio Mosquera MD at 16:33 EST Tel , Service support ,
--- NOTE | 2021-02-19 15:44 | RAD_ITS ---
STUDY: X-RAY - THORACIC SPINE REASON FOR EXAM: Female, 66 years old. SOMATIC DYSFX THORACICI REGION TECHNIQUE: 3 view(s) of the thoracic spine were obtained. COMPARISON: None. FINDINGS: Normal kyphosis of the thoracic spine. Mild dextroscoliosis of the lower thoracic spine. Normal thoracic vertebrae and endplates. Normal disc space heights. The soft tissue structures are unremarkable. RAD/Thoracic Spine 3 Views IMPRESSION: Mild dextroscoliosis lower thoracic spine to Electronically Signed: Silvio Mosquera MD at 16:32 EST Tel , Service support ,
--- NOTE | 2021-02-19 15:48 | RAD_ITS ---
STUDY: X-RAY - CERVICAL SPINE REASON FOR EXAM: Female, 66 years old. SOMATIC DYSFX TECHNIQUE: 5 view(s) of the cervical spine were obtained. COMPARISON: None FINDINGS: Normal anterior atlantoaxial articulation. Normal odontoid process. Normal cervical lordosis. Normal vertebral bodies and endplates. Normal disc space heights. Normal visualized intervertebral neuroforamina. The soft tissue structures are unremarkable. RAD/Cerv Spine 4 or 5 Views IMPRESSION: Normal x-ray examination of the visualized cervical spine. Electronically Signed: Silvio Mosquera MD at 16:34 EST Tel , Service support ,
== END 2021-02-19 23:59 | disposition short-term general hospital (02) ==
PROVIDERS: PCP Internal Medicine; Referring Provider Internal Medicine; Visit Provider Internal Medicine
DX: M46.1 Sacroiliitis, not elsewhere classified (principal); M54.51 Vertebrogenic low back pain; M60.9 Myositis, unspecified; M99.01 Segmental and somatic dysfunction of cervical region; M99.02 Segmental and somatic dysfunction of thoracic region; M99.03 Segmental and somatic dysfunction of lumbar region; M99.05 Segmental and somatic dysfunction of pelvic region
CPT/HCPCS: 72050; 72070; 72072; 72110

== ENCOUNTER → 2021-10-01 | Outpatient (CLI) | payer OTHER, SELFPAY ==
[2021-10-01 09:26] LABS: ALB/GLOB Ratio 1.3 RATIO (0.9-2.4); AST(SGOT) 12 U/L (15-37); Alanine Aminotransfer ALT/SGPT 17 U/L (13-56); Albumin, Serum 4.1 g/dL (3.2-5.0); Alkaline Phosphatase 69 U/L (45-117); Anion Gap 4 (5-15); BUN 12 mg/dL (7-18); Chloride 106 mmol/L (98-107); Creatinine, Serum 0.67 mg/dL (0.55-1.02); EST Glomerular Filtration Rate 94 mL/min (>60); Est Glom Filt Rate - Afr Amer 114 mL/min (>60); Globulin 3.1 g/dL (2.2-4.2); Glucose 92 mg/dL (74-106); Potassium 4.4 mmol/L (3.5-5.1); Protein, Total 7.2 g/dL (6.4-8.2); Sodium Level 139 mmol/L (136-145)
[2021-10-01 10:00] LABS: Vitamin D,25 Hydroxy 66.2 ng/mL
[2021-10-01 11:08] LABS: Cholesterol 263 mg/dL (200); High Density Lipoprotein 69 mg/dL; Thyroid Stim Hormone (TSH) 2.36 uIU/mL (0.358-3.74); Triglycerides 88 mg/dL; Very Low Density Lipoprotein 18 mg/dL (5-40)
== END | disposition home or self-care (01) ==
PROVIDERS: Internal Medicine Endocrinology, Diabetes & Metabolism; PCP Internal Medicine; Referring Provider Internal Medicine; Visit Provider Internal Medicine
DX: M81.0 Age-related osteoporosis without current pathological fracture (principal); E55.9 Vitamin D deficiency, unspecified
CPT/HCPCS: 36415; 80053; 80061; 82306; 84443

== ENCOUNTER → 2021-12-13 | Outpatient (CLI) | payer OTHER, SELFPAY ==
--- NOTE | 2021-12-13 14:25 | RAD_ITS ---
STUDY: X-RAY - RIGHT HAND REASON FOR EXAM: Female, 66 years old. cyst in hand TECHNIQUE: 3 view(s) of the hand. COMPARISON: None. FINDINGS: Diffuse osteopenia. There is joint space narrowing of the radiocarpal articulation consistent with degenerative arthrosis. Normal distal radioulnar joint. Normal visualized carpal bones. There is degenerative joint disease of the scaphotrapezium / trapezoid articulation. The remainder of the carpal articulations are normal. There is degenerative arthrosis of the carpometacarpal (CMC) articulation of the thumb. Normal second through fifth carpometacarpal joints. Normal metacarpi. There is degenerative arthrosis of the metacarpophalangeal (MCP) joints. There is degenerative arthrosis of the interphalangeal joint of the thumb with articular joint space narrowing. Normal proximal and distal phalanges of the thumb. There is degenerative arthrosis of the metacarpophalangeal (MCP) joints. There is diffuse articular joint space narrowing of the proximal and distal interphalangeal joints of the second through fifth fingers, but without erosive changes or periarticular soft tissue swelling. Normal phalanges of the second through fifth fingers. The soft tissue structures are unremarkable. RAD/Hand Min 3 Views IMPRESSION: Diffuse osteopenia with multilevel degenerative disease. No acute fracture or subluxation. Electronically Signed: Lucille Harris MD at 2:36 EST ,
== END | disposition home or self-care (01) ==
LOC: RAD 14:17
PROVIDERS: PCP Internal Medicine; Referring Provider Orthopaedic Surgery Sports Medicine; Visit Provider Orthopaedic Surgery Sports Medicine
DX: M72.0 Palmar fascial fibromatosis [Dupuytren] (principal)
CPT/HCPCS: 73130

== ENCOUNTER → 2022-06-02 | Outpatient (CLI) | payer OTHER, SELFPAY ==
[2022-06-02 09:24] LABS: Absolute Lymphocyte Count 1.79 X10^3/uL (0.83-4.51); Basophil# 0.06 X10^3/uL; Basophil% 0.9 % (0-1); Eosinophil# 0.13 X10^3/uL; Hematocrit 42.1 % (37-47); Hemoglobin 13.9 g/dL (12.0-15.0); Lymphocyte # 1.79 X10^3/ul (0.83-4.51); Mean Corpuscular Hgb 29.2 pg (27.0-32.0); Mean Corpuscular Volume 88.4 fL (81-99); Monocyte# 0.69 X10^3/uL; Monocyte% 10.4 % (0-10); NRBC Flagged by Analyzer 0 % (0-5); Neutrophil # 3.95 X10^3/uL (2.7-7.7); Neutrophil % 59.4 % (47-70); Platelet Count 339 K/mm3 (150-450); RBC Distribution Width CV 12.2 % (11.6-14.6); RBC Distribution Width SD 39.5 fl (35.1-43.9); Red Blood Count 4.76 M/mm3 (4.2-5.4); White Blood Count 6.6 K/mm3 (4.4-11.0)
[2022-06-02 09:55] LABS: Vitamin D,25 Hydroxy 55.6 ng/mL
[2022-06-02 10:08] LABS: ALB/GLOB Ratio 1.2 RATIO (0.9-2.4); AST(SGOT) 18 U/L (15-37); Alanine Aminotransfer ALT/SGPT 18 U/L (13-56); Albumin, Serum 4.2 g/dL (3.2-5.0); Alkaline Phosphatase 112 U/L (45-117); Anion Gap 3 (5-15); BUN 16 mg/dL (7-18); BUN/Creat Ratio 22.2 RATIO (10-20); Calcium,Total 9.5 mg/dL (8.5-10.1); Chloride 107 mmol/L (98-107); Cholesterol 307 mg/dL (200); Creatinine, Serum 0.72 mg/dL (0.55-1.02); EST Glomerular Filtration Rate 86 mL/min (>60); Est Glom Filt Rate - Afr Amer 104 mL/min (>60); Free T3 2.6 pg/mL (2.18-3.98); Globulin 3.5 g/dL (2.2-4.2); Glucose 92 mg/dL (74-106); High Density Lipoprotein 71 mg/dL; Potassium 3.5 mmol/L (3.5-5.1); Protein, Total 7.7 g/dL (6.4-8.2); Sodium Level 136 mmol/L (136-145); T4 Free Direct 0.98 ng/dL (0.76-1.46); Thyroid Stim Hormone (TSH) 2.03 uIU/mL (0.358-3.74); Triglycerides 119 mg/dL; Very Low Density Lipoprotein 24 mg/dL (5-40)
== END | disposition home or self-care (01) ==
LOC: LAB 08:42
PROVIDERS: PCP Internal Medicine; Referring Provider Internal Medicine; Visit Provider Internal Medicine
DX: M81.0 Age-related osteoporosis without current pathological fracture (principal); M19.90 Unspecified osteoarthritis, unspecified site; E55.9 Vitamin D deficiency, unspecified; E78.00 Pure hypercholesterolemia, unspecified; R53.83 Other fatigue
CPT/HCPCS: 36415; 80053; 80061; 82306; 83735; 84439; 84443; 84481; 85025

== ENCOUNTER 2022-12-12 12:07 | Emergency (ER) | payer MEDICARE, OTHER, SELFPAY ==
[2022-12-12 12:08] VITALS: BP 140/82; PULSE 76; RESP 14; TEMP 36.6; O2SAT 100; BMI 21.2
[2022-12-12 12:38] LABS: Absolute Lymphocyte Count 1.83 X10^3/uL (0.83-4.51); Absolute Neutrophil Count 5.8 X10^3/uL (2.0-7.7); Basophil# 0.06 X10^3/uL; Basophil% 0.7 % (0-1); Eosinophil# 0.07 X10^3/uL; Eosinophils% 0.8 % (0-5); Hemoglobin 14.6 g/dL (12.0-15.0); Lymphocyte # 1.83 X10^3/ul (0.83-4.51); Lymphocyte % 21.6 % (19-41); Mean Corp Hgb Conc 32.4 g/dL (32-36); Mean Corpuscular Hgb 28.6 pg (27.0-32.0); Mean Corpuscular Volume 88.2 fL (81-99); Mean Platelet Vol. 9.6 fl (6.2-12.0); Monocyte# 0.66 X10^3/uL; Monocyte% 7.8 % (0-10); NRBC Flagged by Analyzer 0 % (0-5); Neutrophil # 5.84 X10^3/uL (2.7-7.7); Neutrophil % 68.9 % (47-70); Platelet Count 350 K/mm3 (150-450); RBC Distribution Width CV 12.3 % (11.6-14.6); RBC Distribution Width SD 40.3 fl (35.1-43.9); White Blood Count 8.5 K/mm3 (4.4-11.0)
[2022-12-12 12:54] LABS: ALB/GLOB Ratio 1.2 RATIO (0.9-2.4); AST(SGOT) 14 U/L (15-37); Alanine Aminotransfer ALT/SGPT 18 U/L (13-56); Albumin, Serum 4.3 g/dL (3.2-5.0); Alkaline Phosphatase 108 U/L (45-117); Anion Gap 3 (5-15); BUN 11 mg/dL (7-18); BUN/Creat Ratio 13.6 RATIO (10-20); Calcium,Total 9.1 mg/dL (8.5-10.1); Chloride 107 mmol/L (98-107); Creatinine, Serum 0.81 mg/dL (0.55-1.02); EST Glomerular Filtration Rate 75 mL/min (>60); Est Glom Filt Rate - Afr Amer 91 mL/min (>60); Globulin 3.6 g/dL (2.2-4.2); Glucose 98 mg/dL (74-106); Protein, Total 7.9 g/dL (6.4-8.2); Sodium Level 140 mmol/L (136-145)
--- NOTE | 2022-12-12 14:17 | CT_ITS ---
STUDY: CT ABDOMEN AND PELVIS WITH CONTRAST REASON FOR EXAM: Female, 67 years old. Abdominal pain RADIATION DOSAGE (If Supplied By Facility): CTDIvol = ( 13.92 ) mGy, DLP = ( 372.65 ) mGycm TECHNIQUE: Transaxial images were obtained from the dome of the diaphragm to the symphysis pubis without oral contrast. Oral and IV Gastrografin and 100mL Isovue-370 was administered. Sagittal and coronal images were reconstructed. Individualized dose optimization techniques were used for this CT. COMPARISON: None. FINDINGS: The visualized lung bases are unremarkable. The visualized portions of the heart are within normal limits. There is a 3.2 x 2.8 cm left hepatic lesion with nodular peripheral enhancement, suggestive for a hemangioma. Normal gallbladder and extrahepatic biliary system. Normal spleen. Normal pancreas. Normal bilateral adrenal glands. Normal right kidney. Normal left kidney. Normal visualized stomach. Normal small intestine. Normal colon. The appendix is visualized and appears normal. Normal abdominal aorta. Normal inferior vena cava. Normal retroperitoneum. Normal urinary bladder. Normal abdominal wall. Normal osseous structures. CT/Abdomen/Pelvis WITH Contrast IMPRESSION: Stable probable left hepatic hemangioma. Electronically Signed: Dima Peoples DO at 16:39 EST Reading Location ID and State: [facility] / [place] Tel [phone], Service support ,
--- NOTE | 2022-12-12 14:18 | ED.VIS.GI ---
HPI HPI - GI History of Present Illness Chief Complaint: Abd Pain Informant: patient Abdominal Pain/Flank Pain Onset: Weeks (3) Context: Gradual Onset Timing: Waxes and wanes Quality: Aching Location: RLQ and Right Flank Worsened by: - (Sometimes a bowel movement makes it worse) Relieved by: Nothing Nausea/Vomiting/Emesis GI Symptom: Positive for Nausea; Negative for Vomiting Diarrhea/Melena/Hematochezia GI Symptom: Negative for Diarrhea, Melena or Hematochezia Associated Symptoms Associated Symptoms: Negative for Dysuria, Frequency or Hematuria Narrative Narrative: Patient presents with abdominal pain that has been waxing and waning over the past 3 weeks. Patient states her pain feels more like an ache in her right lower abdomen. Patient states it radiates into her right flank. Patient sometimes gets worse after a bowel movement but not always. Patient states nothing makes it better. Patient admits to some nausea but denies any vomiting. Patient denies any diarrhea, melena, or hematochezia. Patient denies any urinary complaints. Patient denies any fevers or chills. PFSH PFS Medical History Back problem Chronic bronchitis Dupuytrens contracture Fibromyalgia H/O emotional problems High cholesterol Hyperlipemia IBS (irritable bowel syndrome) Ischemic colitis Osteopenia Osteoporosis Seasonal allergies Vitamin D deficiency Vitamin D deficiency Home Medications famciclovir 125 mg tablet 125 mg PO .prn 11/21/19 [History Last Taken Unknown] meclizine 25 mg tablet 25 mg PO BID PRN dizziness #30 tabs 07/15/21 [Rx Last Taken Unknown] cholecalciferol (vitamin D3) 1,250 mcg (50,000 unit) capsule 1,250 mcg PO QMONTH #3 caps 08/31/22 [Rx Last Taken Unknown] Allergy/AdvReac Type Severity Reaction Status Date / Time codeine Allergy Rash Verified 12/12/22 12:09 latex Allergy Rash Verified 12/12/22 12:09 lidocaine Allergy Rash Verified 12/12/22 12:09 black cohosh AdvReac Mild Other Verified 12/12/22 12:09 morphine AdvReac Nausea Verified 12/12/22 12:09 NSAIDS (Non-Steroidal AdvReac Other Verified 12/12/22 12:09 Anti-Inflamma suture AdvReac Itching Verified 12/12/22 12:09 Family History Father Cancer Aunt Kidney disease Surgical History H/O tubal ligation Social History adopted: No household members: family housing: house number of children: 1 current occupational status: employed current occupation: [employer] current occupational exposures/hazards: No pets and animals: Yes history of recent travel: No sexually active: Yes Smoking Status: Never smoker second hand exposure: No alcohol intake: never substance use type: does not use caffeine: Yes what type of physical activity do you participate in: none seatbelt use: always do you feel safe at home: Yes additional social history: Spouse- Won liu for [employer] 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[employer] ROS ROS ED Constitutional Constitutional ED: Denies chills or fever(s) Eyes Eyes: Denies blurry vision or change in vision ENT ENT ED: Denies rhinorrhea or sore throat Cardiovascular Cardiovascular: Denies chest pain or palpitations Respiratory/Chest Respiratory/Chest: Denies cough or dyspnea Gastrointestinal Gastrointestinal: Reports abdominal pain and nausea; Denies diarrhea, melena or vomiting Genitourinary Genitourinary ED: Denies dysuria or hematuria Musculoskeletal Musculoskeletal: Reports back pain and neck pain Integumentary Denies abscess or rash Neurologic Neurologic: Denies headache(s) or weakness Allergic/Immunologic Allergic/Immunologic ED: Denies mouth swelling or urticaria EXAM Physical Exam Const Vital Signs: 12/12/22 12:08 12/12/22 14:32 Temperature 97.8 F Temperature Source Temporal Pulse Rate 76 69 Respiratory Rate 14 16 Blood Pressure 140/82 H 159/72 H Blood Pressure Mean 101 101 Pulse Ox 100 98 Oxygen Delivery Method Room Air Positive well nourished and well developed General Appearance ED: well developed and NAD HEENT Reports moist mucous membranes Neck supple and no JVD Resp normal respiratory effort and clear to auscultation bilaterally Cardio regular rate and regular rhythm GI Palpation: soft and tender RLQ and RUQ; Negative for guarding or rebound tenderness present Back/Spine General Back: CVA tenderness right Extremity full ROM General Extremety ED: Negative for edema or tenderness General Extremity: Negative for edema Neuro CN's II-XII intact bilaterally, moves all extremities and no sensory deficits noted Sensorium / Orientation: alert Motor Exam: strength 5/5 throughout Psych mental status grossly normal and thought process normal MDM MDM MDM Narrative Medical decision making narrative: Differential diagnosis includes appendicitis, diverticulitis, ureteral calculus, pyelonephritis, pancreatitis, cholelithiasis, cholecystitis, gastroenteritis, viral illness, and mesenteric adenitis. CBC will be obtained to assess for leukocytosis and anemia. Comprehensive metabolic profile will be obtained to assess for hepatic function, renal function, and electrolyte abnormality. Urinalysis will be obtained to assess for urinary tract infection and hematuria. Lipase will be obtained to assess for pancreatitis. CT scan of the abdomen pelvis will be obtained to assess for appendicitis, diverticulitis, bowel obstruction, perforation, and ureteral calculus Lab Data Attestation: I reviewed the patient's lab results. Lab results narrative: CBC was reviewed and was within normal limits. Comprehensive metabolic profile was reviewed and was within normal limits. Lipase was reviewed and was normal at 42. Urinalysis was reviewed. There is no evidence of urinary tract infection or hematuria. Labs: Laboratory Results - last 24 hr 12/12/22 12/12/22 12:20 14:25 WBC 8.5 RBC 5.10 Hgb 14.6 Hct 45.0 MCV 88.2 MCH 28.6 MCHC 32.4 RDW Std Deviation 40.3 RDW Coeff of Cindy 12.3 Plt Count 350 MPV 9.6 Immature Gran % (Auto) 0.200 Neut % (Auto) 68.9 Lymph % (Auto) 21.6 [place] % (Auto) 7.8 Eos % (Auto) 0.8 Baso % (Auto) 0.7 Absolute Neuts (auto) 5.8 Absolute Lymphs (auto) 1.83 Nucleated RBC % 0 Sodium 140 Potassium 4.0 Chloride 107 Carbon Dioxide 30.0 Anion Gap 3 L BUN 11 Creatinine 0.81 Estim Creat Clear Calc 53.30 Est GFR (MDRD) Af Amer 91 Est GFR (MDRD) Non-Af 75 BUN/Creatinine Ratio 13.6 Glucose 98 Calcium 9.1 Total Bilirubin 0.60 AST 14 L ALT 18 Alkaline Phosphatase 108 Total Protein 7.9 Albumin 4.3 Globulin 3.6 Albumin/Globulin Ratio 1.2 Lipase 42 Urine Color Yellow Urine Clarity Sl. Cloudy Urine pH 7.0 Ur Specific Dexter 1.010 Urine Protein Negative Urine Glucose (UA) Normal Urine Ketones Negative Urine Occult Blood Negative Urine Nitrite Negative Urine Bilirubin Negative Urine Urobilinogen Normal Ur Leukocyte Esterase 25 H Urine RBC 0 SEEN Urine WBC 0-5 SEEN Ur Squamous Epith Cells 0-5 SEEN Urine Bacteria 0 SEEN Urine Mucus 0 SEEN Radiography Diagnostic Testing: Clinical Impression(s) from Imaging Studies Abdomen/Pelvis CT 12/12/22 14:17 IMPRESSION: Stable probable left hepatic hemangioma. Electronically Signed: Dima Peoples DO at 16:39 EST Reading Location ID and State: [facility] / [place] Tel [phone], Service support , CT scan of the abdomen pelvis was obtained. There is a left hepatic hemangioma. There is no evidence of appendicitis. There is no ureteral calculus noted. There is no evidence of diverticulitis. There is no free air or free fluid. This was interpreted by the radiologist and was also independently reviewed by myself. Treatment and Re-Evaluation :: Patient was given IV fluids and Zofran. Patient was advised of her findings. Patient was feeling better on reevaluation. Patient was instructed to use ice to the area. Patient was instructed to take Tylenol or ibuprofen as needed for pain. Patient was instructed to follow-up with her primary care physician in 5 to 7 days. Patient understood and was agreeable with the plan. All questions were answered. Discharge Plan Triage Chief Complaint: Abd Pain ED Provider: Alli Tan Dx/Rx/DC Orders Clinical Impression: Acute right lower quadrant pain Instructions: ED Abdominal Pain Unkn Cause Fem Prescriptions: No Action famciclovir 125 mg tablet 125 mg PO .prn meclizine 25 mg tablet 25 mg PO BID PRN (Reason: dizziness) Qty: 30 1RF Rx Instructions: 1/2-1 tab per dose. cholecalciferol (vitamin D3) 1,250 mcg (50,000 unit) capsule 1,250 mcg PO QMONTH Qty: 3 1RF Primary Care Provider: Cyndee James Referrals: Cyndee James MD [Primary Care Provider] - 5-7 Days Disposition Disposition: Home, Self Care
[2022-12-12] MEDS: 0.9% Normal Saline (1000mL) 1,000 ML 1000 ML IV (14:31)
[2022-12-12 14:32] VITALS: BP 159/72; PULSE 69; RESP 16; O2SAT 98
[2022-12-12 14:37] LABS: Bacteria 0 SEEN /hpf (None Seen); Mucous, Urine 0 SEEN /hpf (<or=2+); Red Blood Cells-Urine 0 SEEN /hpf (0-5)
[2022-12-12 14:41] LABS: Lipase 42 U/L (13-75)
[2022-12-12 14:42] LABS: Color, Urine Yellow (Yellow); Glucose, Dipstick Normal (Normal); Ketone-Dipstick Negative (Negative); Leukocyte Esterase-Dipstick 25 /ul (Negative); Nitrite-Dipstick Negative (Negative); Occult Blood-Urine Negative /ul (Negative); Protein-Dipstick Negative (Negative); Urine Bilirubin Dipstick Negative (Negative); Urine Clarity Sl. Cloudy (Clear); Urine Urobilinogen Normal (Normal)
[2022-12-12 14:52] LABS: Squamous Epithelial Cells - UA 0-5 SEEN /hpf (5-10); White Blood Cells 0-5 SEEN /hpf (0-5)
--- NOTE | 2022-12-12 15:43 | ED.RN ---
Ambulatory to bathroom, gait steady. Awaiting CT.
[2022-12-12 17:23] VITALS: BP 136/73; PULSE 68; RESP 16
== END 2022-12-12 17:24 | disposition home or self-care (01) ==
PROVIDERS: Emergency Provider Emergency Medicine; PCP Internal Medicine; Visit Provider Emergency Medicine
DX: R10.31 Right lower quadrant pain (principal); R11.0 Nausea; E78.00 Pure hypercholesterolemia, unspecified
CPT/HCPCS: 74177; 80053; 81001; 83690; 85025; 96360; 96361; 99283; J7030; Q9967; A4216

== ENCOUNTER → 2023-06-20 | Outpatient (CLI) | payer MEDICARE, OTHER, SELFPAY ==
[2023-06-20 09:59] LABS: Vitamin D,25 Hydroxy 51.3 ng/mL
[2023-06-20 10:07] LABS: ALB/GLOB Ratio 1.1 RATIO (0.9-2.4); AST(SGOT) 20 U/L (15-37); Alanine Aminotransfer ALT/SGPT 20 U/L (13-56); Albumin, Serum 3.9 g/dL (3.2-5.0); Alkaline Phosphatase 101 U/L (45-117); Anion Gap 3 (5-15); BUN 16 mg/dL (7-18); BUN/Creat Ratio 22.2 RATIO (10-20); Calcium,Total 9.2 mg/dL (8.5-10.1); Chloride 108 mmol/L (98-107); Creatinine, Serum 0.72 mg/dL (0.55-1.02); EST Glomerular Filtration Rate 85 mL/min (>60); Est Glom Filt Rate - Afr Amer 103 mL/min (>60); Globulin 3.5 g/dL (2.2-4.2); Glucose 90 mg/dL (74-106); Magnesium 2.4 mg/dL (1.6-2.6); Potassium 4.4 mmol/L (3.5-5.1); Protein, Total 7.4 g/dL (6.4-8.2); Sodium Level 138 mmol/L (136-145); Thyroid Stim Hormone (TSH) 2.05 uIU/mL (0.358-3.74)
== END | disposition home or self-care (01) ==
LOC: LAB 08:32
PROVIDERS: PCP Internal Medicine; Visit Provider Internal Medicine
DX: E55.9 Vitamin D deficiency, unspecified (principal); M81.0 Age-related osteoporosis without current pathological fracture; M19.90 Unspecified osteoarthritis, unspecified site; R53.83 Other fatigue
CPT/HCPCS: 36415; 80053; 82306; 83735; 84443

== ENCOUNTER → 2024-02-12 | Outpatient (CLI) | payer MEDICARE, OTHER, SELFPAY ==
--- NOTE | 2024-02-12 18:01 | MRI_ITS ---
STUDY: MRI CERVICAL SPINE WITHOUT CONTRAST REASON FOR EXAM: Female, 69 years old. Right-sided neck pain extends to shoulder, arm and elbow. TECHNIQUE: Standardized fat and water weighted pulse sequences were obtained in the sagittal and axial planes. COMPARISON: Cervical spine radiographs 01/12/2024. FINDINGS: Normal foramen magnum and brainstem-cervical cord junction. Normal craniovertebral junction. Normal anterior atlantoaxial articulation. Normal odontoid process. Normal cervical lordosis. Normal vertebral bodies and posterior osseous elements. C2-3: Normal endplates. Normal disc height, signal and morphology. Normal central canal and intervertebral neural foramina. C3-4: Normal endplates. Normal disc height, signal and morphology. Normal central canal and intervertebral neural foramina. C4-5: Normal endplates. Normal disc height, signal and morphology. Normal central canal and intervertebral neural foramina. C5-6: Normal endplates. Normal disc height, signal and morphology. Normal central canal and intervertebral neural foramina. C6-7: Normal endplates. Normal disc height, signal and morphology. Normal central canal and intervertebral neural foramina. C7-T1: Normal endplates. Normal disc height, signal and morphology. Normal central canal and intervertebral neural foramina. T1-T2, T2-T3, T3-T4 and T4-T5: (Sagittal only). Normal endplates. Normal disc height, signal and morphology. Normal central canal and intervertebral neuroforamina. Normal cervical cord. Normal upper thoracic spinal cord. Normal visualized soft tissue structures. MRI/Spine Cervical (Routine) IMPRESSION: 1. No MRI evidence of cervical extruded disc fragment, cervical disc protrusion, cervical spinal stenosis or cervical nerve root displacement. 2. Normal cervical spinal cord. 3. No MRI evidence of cervical degenerative inflammatory arthropathy. 4. No MRI evidence of recent or remote fractures of the vertebral bodies and posterior osseous elements of the cervical spine. Electronically Signed: Robinson Franco MD at 15:53 EST ,
== END | disposition home or self-care (01) ==
PROVIDERS: PCP Internal Medicine; Referring Provider Orthopaedic Surgery Orthopaedic Surgery of the Spine; Visit Provider Orthopaedic Surgery Orthopaedic Surgery of the Spine
DX: M54.2 Cervicalgia (principal)
CPT/HCPCS: 72141

== ENCOUNTER → 2024-02-26 | Outpatient (CLI) | payer MEDICARE, OTHER, SELFPAY ==
--- NOTE | 2024-02-26 08:45 | MRI_ITS ---
STUDY: MRI RIGHT SHOULDER REASON FOR EXAM: Female, 69 years old. Pain, rule out cuff tear. TECHNIQUE: Standardized fat and water weighted pulse sequences were obtained in all 3 orthogonal planes. COMPARISON: Right shoulder radiographs dated 10/23/2023. FINDINGS: There is supraspinatus tendinosis with a moderate grade partial thickness articular surface tear of the anterior distal supraspinatus tendon insertion, overall measuring 5 mm in length (coronal T2 series 6 images 5-7) and 7 mm in width (axial PD series 3 image 11; sagittal T2 series 7 images 19-20). Normal infraspinatus tendon. Normal subscapularis tendon. Normal teres minor tendon. Normal supraspinatus muscle. Normal infraspinatus muscle. Normal subscapularis muscle. Normal teres minor muscle. Normal glenohumeral articulation. Normal humeral head and visualized proximal humerus. Normal biceps labral complex. Normal intracapsular long biceps tendon. Normal labrum. Normal capsulo-ligamentous complex. Normal rotator interval. There is minimal acromioclavicular arthrosis. There is a Type II morphology (curved), with a neutral orientation. There is a small amount of subacromial-subdeltoid bursal fluid. Normal visualized coracohumeral and coracoacromial ligaments. Normal quadrilateral space. Normal axillary space. Normal deltoid muscle. Normal trapezius muscle. MRI/Upper Ext Joint Only(Routine) IMPRESSION: Supraspinatus tendinosis with a 5 x 7 mm moderate grade partial thickness articular surface tear of the anterior distal supraspinatus tendon insertion. Minimal acromioclavicular arthrosis. Mild subacromial-subdeltoid bursitis. Electronically Signed: Boston Arana MD at 9:22 EST ,
== END | disposition home or self-care (01) ==
LOC: MRI 08:07
PROVIDERS: PCP Internal Medicine; Referring Provider Orthopaedic Surgery Orthopaedic Surgery of the Spine; Visit Provider Orthopaedic Surgery Orthopaedic Surgery of the Spine
DX: M25.511 Pain in right shoulder (principal)
CPT/HCPCS: 73221

== ENCOUNTER 2024-04-17 12:13 | Day surgery (SDC) | payer MEDICARE, OTHER, SELFPAY ==
--- NOTE | 2024-04-08 07:43 | EKG12_ITS ---
Test Reason : PREOP Blood Pressure : */* mmHG Vent. Rate : 67 BPM Atrial Rate : 67 BPM P-R Int : 124 ms QRS Dur : 78 ms QT Int : 372 ms P-R-T Axes : 76 85 24 degrees QTcB Int : 393 ms Normal sinus rhythm Normal ECG Confirmed by Won Holden ([id number]), video news editor LINDA FELIPE ([id number]) on 04/08/2024 10:56:56 AM Referred By: Álvaro Giraldo Confirmed By: Won Holden
[2024-04-08 08:45] LABS: Hematocrit 44.1 % (37-47); Hemoglobin 14.8 g/dL (12.0-15.0); Mean Corp Hgb Conc 33.6 g/dL (32-36); Mean Corpuscular Hgb 29.1 pg (27.0-32.0); Mean Corpuscular Volume 86.6 fL (81-99); Mean Platelet Vol. 9.8 fl (6.2-12.0); Platelet Count 330 K/mm3 (150-450); RBC Distribution Width SD 38.5 fl (35.1-43.9); Red Blood Count 5.09 M/mm3 (4.2-5.4); White Blood Count 6.4 K/mm3 (4.4-11.0)
[2024-04-08 08:54] LABS: International Normalized Ratio 0.9; Partial Thromboplast Time 28.1 Seconds (24.1-36.2); Prothrombin Time (Protime)PT. 12.4 SECONDS (11.7-14.9)
[2024-04-08 09:32] LABS: AST(SGOT) 20 U/L (<=31); Alanine Aminotransfer ALT/SGPT 16 U/L (<=34); Albumin, Serum 4.7 g/dL (3.4-4.8); Alkaline Phosphatase 101 U/L (35-104); Bilirubin, Direct 0.19 mg/dL (0.00-0.30); Globulin 2.6 g/dL (2.2-4.2); Protein, Total 7.3 g/dL (5.9-8.4); Total Bilirubin 0.59 mg/dL (0.00-1.30)
--- NOTE | 2024-04-09 09:21 | PAT.ANE_ITS ---
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 When Was Last Pacemaker Check QUESTION #4 FULL TEXT: You/Your Family Experience fever (hyperthermia) with Anesthesia Last Oral Intake Last Oral intake: Last Oral Intake NPO since Meds taken in AM with sips of water? Meds patient instructed to take am of surgery PONV PONV - corporate development analyst: PONV - corporate development analyst Female Yes 04/03/24 15:31 HX of Motion Sickness Yes 04/03/24 15:31 HX of N/V After Surgery No 04/03/24 15:31 Non-Smoker Yes 04/03/24 15:31 Duration of Surgery greater Yes 04/03/24 15:31 than 60 minutes Number of Risk Factors 4 04/03/24 15:31 PONV Score Severe Risk 04/03/24 15:31 Height & Weight Height & Weight: Anesthesia: Height & Weight Height 5 ft 2 in 10/17/23 09:30 Respiratory Assessment Respiratory Assessment - corporate development analyst: Respiratory Tract Infection Hx - corporate development analyst Hx Respiratory Tract Infection No 04/03/24 15:31 STOP Sleep Apnea STOP Sleep Apnea - corporate development analyst: STOP Sleep Apnea - corporate development analyst Hx Hypertension No 04/03/24 15:31 Hx Sleep Apnea No 04/03/24 15:31 CPAP No 10/17/23 09:30 BIPAP No 10/17/23 09:30 Do you snore loudly (louder No 04/03/24 15:31 than talking or can be heard Do you often feel tired/ No 04/03/24 15:31 fatigued/ sleepy during daytime? Has anyone observed you stop No 04/03/24 15:31 breathing during sleep? STOP Results Negative 04/03/24 15:31 QUESTION #5 FULL TEXT : Do you snore loudly (louder than talking or can be heard through closed doors)? 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 Specify any problems Hx of Preganancy in last 3 No 04/03/24 15:31 Months Nurse Filling Out Transfusion VCHRISTIN 04/03/24 15:31 & Questions: Date: 04/03/24 04/03/24 15:31 Time: 15:32 04/03/24 15:31 Patient unable to answer at this time (ie. confused, unrespo /Reproduction History /Reproductive History - corporate development analyst: /Reproductive Hx- corporate development analyst Hx Now No 04/03/24 15:31 Gestational Age (in weeks): EDC: Hx Hx Para Hx Section SAB No 04/03/24 15:31 [facility] Medical History (Updated 04/03/24 @ 15:31 by Zuly Yeh) Wears glasses Post-menopausal Easy bruising Back pain Non-smoker History of stress test History of irregular heartbeat Right rotator cuff tear Impingement of right shoulder Physical exam, pre-employment Dupuytrens contracture Vitamin D deficiency Osteoporosis Ischemic colitis Vitamin D deficiency Osteopenia High cholesterol H/O emotional problems Chronic bronchitis Back problem Seasonal allergies IBS (irritable bowel syndrome) Fibromyalgia Hyperlipemia Home Medications ?Medication ?Instructions ?Recorded ?Last Taken ?Type cyclobenzaprine 10 mg tablet 10 mg PO TID PRN muscle s pasm #20 02/08/24 Unknown Rx tabs calcium 500 mg (as 1 tab PO DAILY 04/03/24 Unkn own History carbonate)-vitamin D3 10 mcg (400 unit) tablet (Calcium 500 + D) cholecalciferol (vitamin D3) 1,250 1,250 mcg PO QMONTH #3 caps 04/08/24 Unknown Rx mcg (50,000 unit) capsule Allergy/AdvReac Type Severity Reaction Status Date / Time codeine Allergy Rash Verified 04/03/24 15:21 latex Allergy Rash Verified 04/03/24 15:21 lidocaine Allergy Rash Verified 04/03/24 15:21 black cohosh AdvReac Mild Other Verified 02/29/24 08:11 morphine AdvReac Nausea Verified 04/03/24 15:21 NSAIDS (Non-Steroidal AdvReac Other Verified 04/03/24 15:21 Anti-Inflamma suture AdvReac Itching Verified 04/03/24 15:21 Family History Father Cancer Aunt Kidney disease Surgical History (Updated 04/03/24 @ 15:31 by Zuly Yeh) Hx of surgical procedure H/O tubal ligation Social History adopted: No household members: family housing: house number of children: 1 current occupational status: employed current occupation: [employer] current occupational exposures/hazards: No pets and animals: Yes history of recent travel: No sexually active: Yes Smoking Status: Never smoker second hand exposure: No alcohol intake: never substance use type: does not use caffeine: Yes what type of physical activity do you participate in: none seatbelt use: always do you feel safe at home: Yes additional social history: 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 Normal sinus rhythm. Recommendation Anesthesia Recommendation Anesthesia recommendation: OPTIMIZED for anesthesia
[2024-04-17] VITALS (10 sets, daily range): BP systolic 145–170; BP diastolic 75–89; PULSE 57–74; RESP 14–16; TEMP 35.9–36.9; O2SAT 92–99; BMI 19.5
--- NOTE | 2024-04-17 12:43 | PRE.ANES_ITS ---
ASA Classification* ASA Classification ASA Classification: 2 Assessment & Plan Anesthesia* Anesthesia Assessment Anesthesia Assessment: Discussed sedation and/or anesthesia options, risks, benefits, and alternatives with patient/parents/legal guardian/POA. Questions invited. The patient/parents/legal guardian/POA seems to understand and agrees to proceed with anesthesia plan. Reviewed the physical assessment, medical history, allergy history and patient home medications list prior to surgery/procedure/anesthetic and documented any changes. Performed airway and anesthesia risk assessments. Anesthesia Type Anesthesia Type: General and Block Anesthesia Focused Assessment* Airway Assessment Mouth opens: >3 cm Mallampati Score: II Focused Labs Anesthesia Preop lab: CBC WBC 6.4 K/mm3 (4.4-11.0) 04/08/24 08:01 04/08/24 RBC 5.09 M/mm3 (4.2-5.4) 04/08/24 08:01 04/08/24 Hgb 14.8 g/dL (12.0-15.0) 04/08/24 08:01 04/08/24 Hct 44.1 % (37-47) 04/08/24 08:01 04/08/24 Plt Count 330 K/mm3 (150-450) 04/08/24 08:01 04/08/24 CHEMISTRY Potassium 4.4 mmol/L (3.5-5.1) 06/20/23 08:37 06/20/23 Sodium 138 mmol/L (136-145) 06/20/23 08:37 06/20/23 Magnesium 2.4 mg/dL (1.6-2.6) 06/20/23 08:37 06/20/23 Phosphorus 3.6 mg/dL (2.5-4.9) 11/06/20 08:31 11/06/20 BUN 16 mg/dL (7-18) 06/20/23 08:37 06/20/23 Creatinine 0.72 mg/dL (0.55-1.02) 06/20/23 08:37 06/20/23 Glucose 90 mg/dL (74-106) 06/20/23 08:37 06/20/23 TSH 2.05 uIU/mL (0.358-3.74) 06/20/23 08:37 05/14/ 24 COAG PT 12.4 SECONDS (11.7-14.9) 04/08/24 08:01 Pre-Assessment Diagnosis/Proposed Procedure Planned Operative Procedure(s): Right shoulder Arthroscopy, subacromial decompression, rotator cuff repair Anesthesia History Anesthesia History - outpatient coder: Anesthesia History - outpatient coder Hx Hospitalization No 04/03/24 15:31 Any Problems With Anesthesia No 04/03/24 15:31 Cholinesterase deficiency No 04/03/24 15:31 You/Your Family Experience No 04/03/24 15:31 fever (hyperthermia) with Relationship Recent Exposure to Contagious No 10/17/23 09:30 Disease Does patient have nerve No 04/03/24 15:31 stimulator Patient instructed to have device shut off --Does patient have Pacemaker or ICD? When Was Last Pacemaker Check QUESTION #4 FULL TEXT: You/Your Family Experience fever (hyperthermia) with Anesthesia Last Oral Intake Last Oral intake: Last Oral Intake NPO since Meds taken in AM with sips of water? Meds patient instructed to take am of surgery PONV PONV - outpatient coder: PONV - outpatient coder Female Yes 04/03/24 15:31 HX of Motion Sickness Yes 04/03/24 15:31 HX of N/V After Surgery No 04/03/24 15:31 Non-Smoker Yes 04/03/24 15:31 Duration of Surgery greater Yes 04/03/24 15:31 than 60 minutes Number of Risk Factors 4 04/03/24 15:31 PONV Score Severe Risk 04/03/24 15:31 Height & Weight Height & Weight: Anesthesia: Height & Weight Height 5 ft 2 in 10/17/23 09:30 Respiratory Assessment Respiratory Assessment - outpatient coder: Respiratory Tract Infection Hx - outpatient coder Hx Respiratory Tract Infection No 04/03/24 15:31 STOP Sleep Apnea STOP Sleep Apnea - outpatient coder: STOP Sleep Apnea - outpatient coder Hx Hypertension No 04/03/24 15:31 Hx Sleep Apnea No 04/03/24 15:31 CPAP No 10/17/23 09:30 BIPAP No 10/17/23 09:30 Do you snore loudly (louder No 04/03/24 15:31 than talking or can be heard Do you often feel tired/ No 02/26/25 15:31 fatigued/ sleepy during daytime? Has anyone observed you stop No 04/03/24 15:31 breathing during sleep? STOP Results Negative 04/03/24 15:31 QUESTION #5 FULL TEXT : Do you snore loudly (louder than talking or can be heard through closed doors)? 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 Specify any problems Hx of Preganancy in last 3 No 04/03/24 15:31 Months Nurse Filling Out Transfusion VCHRISTIN 04/03/24 15:31 & Questions: Date: 04/03/24 04/03/24 15:31 Time: 15:32 04/03/24 15:31 Patient unable to answer at this time (ie. confused, unrespo /Reproduction History /Reproductive History - outpatient coder: /Reproductive Hx- outpatient coder Hx Now No 04/03/24 15:31 Gestational Age (in weeks): EDC: Hx Hx Para Hx Section SAB No 04/03/24 15:31 Active Medications Active Medications: Current Medications Generic Name Dose Route Start Last Admin Trade Name Freq PRN Reason Stop Dose Admin Cefazolin Sodium 2 gm/ N/A 20 mls @ 400 mls/hr 04/17/24 12:45 IV 04/17/24 12:47 PREOP ONE Sodium Chloride 1,000 mls @ 15 mls/hr 04/17/24 12:30 IV 04/23/24 01:49 .Q48H IGNACIA Protocol PFSH Medical History Wears glasses Post-menopausal Easy bruising Back pain Non-smoker History of stress test History of irregular heartbeat Right rotator cuff tear Impingement of right shoulder Physical exam, pre-employment Dupuytrens contracture Vitamin D deficiency Osteoporosis Ischemic colitis Vitamin D deficiency Osteopenia High cholesterol H/O emotional problems Chronic bronchitis Back problem Seasonal allergies IBS (irritable bowel syndrome) Fibromyalgia Hyperlipemia Home Medications ?Medication ?Instructions ?Recorded ?Last Taken ?Type cyclobenzaprine 10 mg tablet 10 mg PO TID PRN muscle s pasm #20 02/08/24 Unknown Rx tabs calcium 500 mg (as 1 tab PO DAILY 04/03/24 Unkn own History carbonate)-vitamin D3 10 mcg (400 unit) tablet (Calcium 500 + D) cholecalciferol (vitamin D3) 1,250 1,250 mcg PO QMONTH #3 caps 04/08/24 04/08/24 Rx mcg (50,000 unit) capsule Allergy/AdvReac Type Severity Reaction Status Date / Time codeine Allergy Rash Verified 04/17/24 12:40 latex Allergy Rash Verified 04/17/24 12:40 lidocaine Allergy Rash Verified 04/17/24 12:40 black cohosh AdvReac Mild Other Verified 04/17/24 12:40 morphine AdvReac Nausea Verified 04/17/24 12:40 NSAIDS (Non-Steroidal AdvReac Other Verified 04/17/24 12:40 Anti-Inflamma suture AdvReac Itching Verified 04/17/24 12:40 Family History Father Cancer Aunt Kidney disease Surgical History Hx of surgical procedure H/O tubal ligation Social History adopted: No household members: family housing: house number of children: 1 current occupational status: employed current occupation: [employer] current occupational exposures/hazards: No pets and animals: Yes history of recent travel: No sexually active: Yes Smoking Status: Never smoker second hand exposure: No alcohol intake: never substance use type: does not use caffeine: Yes what type of physical activity do you participate in: none seatbelt use: always do you feel safe at home: Yes additional social history: Spouse- Won liu for golf course 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
[2024-04-17] MEDS: 0.9% Normal Saline (1000mL) 1,000 ML 15 ML IV (12:57)
--- NOTE | 2024-04-17 13:56 | PCM.HP.STD ---
HPI - General HPI Narrative JEN BARBER, is a 69 F who presents of right shoulder arthroscopy, subacromial decompression, rotator cuff repair. No changes to history and physical exam. Risks alternatives benefits discussed as well as postoperative care and narcotic counseling discussed. Right shoulder marked the patient understands wished to proceed no further questions. MR#: [id number] Acct: [id number] Name: JEN BARBER Rep #: [id number] : 1955 Provider: Dr. Álvaro Giraldo MD Age/Sex: 69/F Location[place] [facility] [place] Status: Signed Intake Vital Signs 10/16/2408:30 Height 5 ft 2 in Intake Visit Reasons: RIGHT SHOULDER Chief Complaint: MRI review Accompanied by: Self Allergies codeine Allergy (Verified 02/29/24 08:11) Rashlatex Allergy (Verified 02/29/24 08:11) Rashlidocaine Allergy (Verified 02/29/24 08:11) Rashblack cohosh Adverse Reaction (Mild, Verified 02/29/24 08:11) Othermorphine Adverse Reaction (Verified 02/29/24 08:11) NauseaNSAIDS (Non-Steroidal Anti-Inflamma Adverse Reaction (Verified 02/29/24 08:11) Othersuture Adverse Reaction (Verified 02/29/24 08:11) Itching Medications ?Medication ?Instructions ?Recorded ?Confirmed ?Type meclizine 25 mg tablet 25 mg PO BID PRN dizziness #30 tabs 07/15/21 02/29/24 Rx cholecalciferol (vitamin D3) 1,250 1,250 mcg PO QMONTH #3 caps 09/05/23 02/29/24 Rx mcg (50,000 unit) capsule famciclovir 500 mg tablet 500 mg PO BID 10 days #20 tabs 12/18/23 02/29/24 Rx cyclobenzaprine 10 mg tablet 10 mg PO TID PRN muscle spasm #20 02/08/24 02/29/24 Rx tabs Have you fallen in the past year?: No PFSH Medical History (Updated 02/29/24 @ 08:24 by Álvaro Giraldo MD) Right rotator cuff tear Impingement of right shoulder Physical exam, pre-employment Dupuytrens contracture Vitamin D deficiency Osteoporosis Ischemic colitis Vitamin D deficiency Osteopenia High cholesterol H/O emotional problems Chronic bronchitis Back problem Seasonal allergies IBS (irritable bowel syndrome) Fibromyalgia Hyperlipemia Surgical History H/O tubal ligation Family History Father CancerAunt Kidney disease Social History adopted: No household members: family housing: house number of children: 1 current occupational status: employed current occupation: [employer] current occupational exposures/hazards: No pets and animals: Yes history of recent travel: No sexually active: Yes Smoking Status: Never smoker second hand exposure: No alcohol intake: never substance use type: does not use caffeine: Yes what type of physical activity do you participate in: none seatbelt use: always do you feel safe at home: Yes additional social history: Spouse- Won liu for golf course 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 Álvaro Giraldo MD 02/29/24 0811. Part of today?s visit was documented by [ ], acting as scribe. JEN BARBER is a 69 year old F here today for follow-up right shoulder MRI. The patient had a cortisone injection 4 months ago as well as a formal physical therapy and has persistent pain in the shoulder worse with lifting and reaching. She has good help at home. Ortho Exam General General: Yes no acute distress Neurologic: Yes alert and Yes oriented x3 Psychologic: Yes reasonable and appropriate Supplemental Info [facility] Imaging Services [address] [place] [id number] Upper Ext Joint Only(Routine) MR#: [id number] Acct: [id number] Name: JEN BARBER Rep #: [id number] : 1955 F 69 From: [place] Arana MD PCP: Dr. Cyndee James MD Status: REG CLI Study: Upper Ext Joint Only(Routine) Date of Exam: 02/26/24 Exam# [id number] Ordering Dr: Álvaro Giraldo MD STUDY: MRI RIGHT SHOULDER REASON FOR EXAM: Female, 69 years old. Pain, rule out cuff tear. TECHNIQUE: Standardized fat and water weighted pulse sequences were obtained in all 3 orthogonal planes. COMPARISON: Right shoulder radiographs dated 10/23/2023. FINDINGS: There is supraspinatus tendinosis with a moderate grade partial thickness articular surface tear of the anterior distal supraspinatus tendon insertion, overall measuring 5 mm in length (coronal T2 series 6 images 5-7) and 7 mm in width (axial PD series 3 image 11; sagittal T2 series 7 images 19-20). Normal infraspinatus tendon. Normal subscapularis tendon. Normal teres minor tendon. Normal supraspinatus muscle. Normal infraspinatus muscle. Normal subscapularis muscle. Normal teres minor muscle. Normal glenohumeral articulation. Normal humeral head and visualized proximal humerus. Normal biceps labral complex. Normal intracapsular long biceps tendon. Normal labrum. Normal capsulo-ligamentous complex. Normal rotator interval. There is minimal acromioclavicular arthrosis. There is a Type II morphology (curved), with a neutral orientation. There is a small amount of subacromial-subdeltoid bursal fluid. Normal visualized coracohumeral and coracoacromial ligaments. Normal quadrilateral space. Normal axillary space. Normal deltoid muscle. Normal trapezius muscle. MRI/Upper Ext Joint Only(Routine) IMPRESSION: Supraspinatus tendinosis with a 5 x 7 mm moderate grade partial thickness articular surface tear of the anterior distal supraspinatus tendon insertion. Minimal acromioclavicular arthrosis. Mild subacromial-subdeltoid bursitis. Electronically Signed: [place] Arana MD at 9:22 EST , I independently reviewed the imaging. Concur with radiologist report. Coding Level of Care Code Off vis,est,level 3 Diagnoses Impingement of right shoulder M25.811 Right rotator cuff tear M75.101 Assessment and Plan Assessment and Plan (1) Impingement of right shoulder: Status: Acute Plan: 69-year-old female with a small undersurface tear of the supraspinatus tendon mild bursitis. We discussed the pros cons risk benefits of continued nonoperative management versus surgery. Surgical management would be in the form of right shoulder arthroscopy, subacromial decompression, rotator cuff repair. Typically I do these in trans tendon fashion and 2 weeks in a sling 2 to 3 months of physical therapy afterwards to regain motion and strength. Discussed specific risks of the surgery patient wishes to go ahead signed the consent form. Pros and cons risks and benefits were discussed with the patient including but not limited to infection, pain, stiffness, bleeding, damage to surrounding structures, neurovascular injury, recurrence or retear, failure or wear of hardware or fixation, instability, fracture, deep vein thrombosis and pulmonary embolism, anesthetic risks, , patient dissatisfaction, need for further surgery and other risks. Patient understood and wished to proceed with surgery, and signed the informed consent documentation. Patient counselled on non-operative and operative means of treating shoulder pain. Conservative options include but not limited to: 1. Rest and Activity Modification: Giving your shoulder time to heal by avoiding movements that cause pain can help. This may involve limiting overhead activities or heavy lifting. 2. Physical Therapy: A physical therapist can guide you through exercises that strengthen the muscles around the shoulder, improve flexibility, and reduce strain on the rotator cuff tendon. 3. Ice and Heat Therapy: Applying ice to the shoulder can help reduce swelling and pain, especially after activity. Heat can be helpful to relax tense muscles and improve blood flow before exercises. 4. Anti-Inflammatory Medications: Wmic-zqa-yxrdful medications like ibuprofen or naproxen can help reduce pain and inflammation in the tendon. 5. Corticosteroid Injections: If the pain is more severe, a steroid injection can reduce inflammation in the shoulder and provide relief for a longer period. 6. Platelet-Rich Plasma (PRP) Injection: This treatment involves using your own blood to promote healing in the tendon. The plasma is rich in growth factors that can encourage tissue repair. 7. TENS (Transcutaneous Electrical Nerve Stimulation): This therapy uses a small electrical current to help manage pain and promote healing by stimulating nerves. (2) Right rotator cuff tear: Status: Acute Clinical Quality Measures Falls Risk Screening/Assistive Devices Have you fallen in the past year?: No [facility] Medical History Wears glasses Post-menopausal Easy bruising Back pain Non-smoker History of stress test History of irregular heartbeat Right rotator cuff tear Impingement of right shoulder Physical exam, pre-employment Dupuytrens contracture Vitamin D deficiency Osteoporosis Ischemic colitis Vitamin D deficiency Osteopenia High cholesterol H/O emotional problems Chronic bronchitis Back problem Seasonal allergies IBS (irritable bowel syndrome) Fibromyalgia Hyperlipemia Home Medications ?Medication ?Instructions ?Recorded ?Last Taken ?Type cyclobenzaprine 10 mg tablet 10 mg PO TID PRN muscle spasm #20 02/08/24 Unknown Rx tabs calcium 500 mg (as 1 tab PO DAILY 04/03/24 Unknown History carbonate)-vitamin D3 10 mcg (400 unit) tablet (Calcium 500 + D) cholecalciferol (vitamin D3) 1,250 1,250 mcg PO QMONTH #3 caps 04/08/24 04/08/24 Rx mcg (50,000 unit) capsule Allergy/AdvReac Type Severity Reaction Status Date / Time codeine Allergy Rash Verified 04/17/24 12:40 latex Allergy Rash Verified 04/17/24 12:40 lidocaine Allergy Rash Verified 04/17/24 12:40 black cohosh AdvReac Mild Other Verified 04/17/24 12:40 morphine AdvReac Nausea Verified 04/17/24 12:40 NSAIDS (Non-Steroidal AdvReac Other Verified 04/17/24 12:40 Anti-Inflamma suture AdvReac Itching Verified 04/17/24 12:40 Family History Father Cancer Aunt Kidney disease Surgical History Hx of surgical procedure H/O tubal ligation Social History adopted: No household members: family housing: house number of children: 1 current occupational status: employed current occupation: [employer] current occupational exposures/hazards: No pets and animals: Yes history of recent travel: No sexually active: Yes Smoking Status: Never smoker second hand exposure: No alcohol intake: never substance use type: does not use caffeine: Yes what type of physical activity do you participate in: none seatbelt use: always do you feel safe at home: Yes additional social history: Spouse- Won Campos noe for golf course 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
[2024-04-17] MEDS: Cefazolin 2 GM in Syringe IV (14:04)
--- NOTE | 2024-04-17 15:05 | PCM.OPRPT ---
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: hall Tasks completed by esl instructional assistant: Retracting Additional casino assistant manager?: No Type of Anesthesia: Block,Regional and General RN Documented Start/Stop Times: Operation Date: 04/17/24 15:00 Case Time Into Pre-Op 04/17/24 12:25 Anesthesia Start 04/17/24 14:04 Into Room 04/17/24 14:04 Out of Pre-Op 04/17/24 14:04 Procedure Start 04/17/24 14:30 Procedure End 04/17/24 15:00 Procedure Start Time: 14:30 Procedure Stop Time: 15:00 Select all DRAINS/GRAFTS/IMPLANTS that apply: Implanted device Implanted device details: Arthrex 4.75 mm swivel lock anchor Estimated Blood Loss: 25 Specimen collected: No Description of surgery: Patient brought to the operating room theater. Placed supine on the table. General anesthesia induced. Patient transferred right side up lateral decubitus beanbag positioner. Axillary roll used. SCDs on the legs. All bony prominences padded. Upper extremity prepped and draped in the usual sterile fashion allowing over 3 minutes drying time prior to draping.. Timeout performed to confirm the site patient and surgery. 5 pounds of inline traction with the arm in 40 degrees of abduction was utilized. Began by inserting the arthroscope into the intra-articular portion of the shoulder through a standard posterior arthroscopy portal. Did a full diagnostic arthroscopy. The cartilage on both sides was normal. Subscapularis appeared normal. Biceps tendon was normal normal roots no SLAP tears no fraying no loose bodies. There is partial-thickness anterior leading edge rotator cuff high-grade undersurface tear identified and marked this with a spinal needle. Arthroscope was then inserted in the subacromial space. I made an accessory lateral portal. Perfomed a bursectomy for small amount of bursitis. I did a subacromial decompression for 3 mm to a flat margin at the anterolateral acromion. I localized the previously marked tear. This is near full thickness high-grade partial-thickness tear. I completed the tear. This measured 5 mm x 5 mm. I elected to then do a repair. I used that power pick instrument to the greater tuberosity to stimulate bony healing. I placed a Arthrex inverted horizontal mattress fiber tape suture as well as a link suture just medial to this to perform a ripstop configuration. This created 3 suture limbs. Inserted these into a 4.75 mm Arthrex swivel lock anchor at the lateral footprint. This achieved good repair. Stay sutures removed sutures cut short. Front arthroscopy pictures taken and saved onto the system repair was solid. Arthroscope withdrawn. Wound cleaned with wet and dry dressing followed by closure of the portals with 3-0 Monocryl suture Steri-Strips Adaptic 4 x 4 gauze ABD dressing cloth tape with a abduction pillow sling for the upper extremity. Patient woken up from general anesthetic transferred off the operating table taken postanesthetic care unit in stable condition. All sponge needle instrument counts were correct no complications plan to the patient discharged home according to day surgery criteria. CPT 09128, 84044 Surgical Findings: As above Complications Complications: No Admit VTE Documentation VTE Present on Admission: No VTE Mechan Device Prophylaxis: SCD's VTE Pharm Prophylaxis ordered?: No Reason prophylaxis not ordered: Treatment Not Indicated
--- NOTE | 2024-04-17 15:16 | PCM.POST.ANE ---
Anesthesia: Postop Eval I Current Vital Signs Temperature: 97 F Pulse Rate: 72 Blood Pressure: 170/89 Respiratory Rate: 16 Pulse Ox: 95 Assessment Airway patent: Yes Spontaneous unlabored respirations: Yes nausea: No Vomiting: No Anesthesia Complication: No Fluid Hydration Crystalloid volume administer (ml): 500 Total IV fluid infused: 500 Progress Note Anesthesia document: Postop Eval 1 completed: Yes
--- NOTE | 2024-04-17 15:18 | DCINST_ITS ---
Discharge Instructions Diet Discharge Diet: No restrictions Activity Ice area for (Minutes): 10 Lifting Restrictions: no lifting over one pound, ok to remove sling at rest Additional Activity Instructions:: ok for pendulums 4x/day, ok for hand wrist elbow ROM Dressing / Incision Call your doctor if your incision/area has: Continuous Slow Oozing, Sudden Increased Bleeding, Increased Pain/ Swelling, Increased Redness, Foul Smelling Discharge and Swelling at the incision site Call your doctor if you observe: Fever of 101 or Higher, Coldness, Increased P ain and Numbness or Tingling Remove Dressing in: leave in place till F/U Cleanse incision/area with: Do not get Incision Wet Follow Up Care Please Follow Up With: Álvaro Giraldo MD When: 2 weeks Test Results: Test results from this visit will be discussed in further detail at your follow- up appointment, if applicable. Discharge Plan Admission Attending Provider: Álvaro Giraldo Primary Care Provider: Cyndee James Instructions Patient Instructions: After Shoulder Arthroscopy Print Language: Cymraes Discharge Orders/Prescriptions Prescriptions: New oxycodone-acetaminophen [Endocet] 5-325 mg tablet 1 tab PO Q6H MDD 4 PRN (Reason: pain) 4 Days Qty: 20 0RF No Action calcium carbonate-vitamin D3 [Calcium 500 + D] 500 mg-10 mcg (400 unit) tablet 1 tab PO DAILY cyclobenzaprine 10 mg tablet 10 mg PO TID PRN (Reason: muscle spasm) Qty: 20 0RF Rx Instructions: Take 1/2 to 1 tab up to three times daily for muscle spasm. Do not drive or o perate dangerous equipment while using this medication. cholecalciferol (vitamin D3) 1,250 mcg (50,000 unit) capsule 1,250 mcg PO QMONTH Qty: 3 1RF Referrals / Follow Up: Cyndee James MD [Primary Care Provider] - Álvaro Giraldo MD [Med Staff - Active Staff] - Disposition Disposition (needs filled in before D/C Order can be placed): Home, Self Care
--- NOTE | 2024-04-17 15:50 | POSTOPAN2_ITS ---
Anesthesia Postop Eval I Sum Postop Eval Completion status Anesthesia document: Postop Eval 1 completed: Yes Anesthesia Postop Eval I Summary Anesthesia Postop Eval I Summary: Anesthesia Postop Eval I: Assessment Summary Airway patent Yes 04/17/24 15:16 DIESEL MAINTENANCE [email or web address] Spontaneous unlabored Yes 04/17/24 15:16 DIESEL MAINTENANCE [email or web address] respirations Mental status nausea No 04/17/24 15:16 DIESEL MAINTENANCE [email or web address] Vomiting No 04/17/24 15:16 DIESEL MAINTENANCE [email or web address] Anesthesia Postop Eval I: Fluid Summary Crystalloid volume administer 500 04/17/24 15:16 DIESEL MAINTENANCE [email or web address] (ml) Colloids volume administered ( ml) Blood Product volume administered (ml) Total IV fluid infused 500 04/17/24 15:16 DIESEL MAINTENANCE [email or web address] Anesthesia Postop Eval I: Summary Notes Anesthesia Complication No 04/17/24 15:16 DIESEL MAINTENANCE [email or web address] Anesthesia Complication Comment: Post-operative progress note Anesthesia: Postop Eval II Evaluation Mental status: Awake Pain Level: 1 nausea: No Vomiting: No
--- NOTE | 2024-04-17 15:50 | PCM.POSTANE2 ---
Anesthesia Postop Eval I Sum Postop Eval Completion status Anesthesia document: Postop Eval 1 completed: Yes Anesthesia Postop Eval I Summary Anesthesia Postop Eval I Summary: Anesthesia Postop Eval I: Assessment Summary Airway patent Yes 04/17/24 15:16 [email or web address] Spontaneous unlabored Yes 04/17/24 15:16 [email or web address] respirations Mental status nausea No 04/17/24 15:16 [email or web address] Vomiting No 04/17/24 15:16 [email or web address] Anesthesia Postop Eval I: Fluid Summary Crystalloid volume administer 500 04/17/24 15:16 [email or web address] (ml) Colloids volume administered ( ml) Blood Product volume administered (ml) Total IV fluid infused 500 04/17/24 15:16 [email or web address] Anesthesia Postop Eval I: Summary Notes Anesthesia Complication No 04/17/24 15:16 [email or web address] Anesthesia Complication Comment: Post-operative progress note Anesthesia: Postop Eval II Evaluation Mental status: Awake Pain Level: 1 nausea: No Vomiting: No
== END 2024-04-17 17:56 | disposition home or self-care (01) ==
LOC: SDC 12:14 → AC 12:15
PROVIDERS: Anesthesiology; PCP Internal Medicine; Referring Provider Orthopaedic Surgery Sports Medicine; Visit Provider Orthopaedic Surgery Sports Medicine
PROC: (CPT 29805; principal; 2024-04-17 14:45)
DX: M75.101 Unspecified rotator cuff tear or rupture of right shoulder, not specified as traumatic (principal); M75.41 Impingement syndrome of right shoulder; M75.51 Bursitis of right shoulder; E55.9 Vitamin D deficiency, unspecified; M81.0 Age-related osteoporosis without current pathological fracture
CPT/HCPCS: 29827; 29826; 01630; 64415; 36415; 80076; 85027; 85610; 85730; 93005; C1713; J2405

== ENCOUNTER 2024-04-22 10:31 | Emergency (ER) | payer MEDICARE, OTHER, SELFPAY ==
[2024-04-22 10:32] VITALS: BP 155/80; PULSE 70; RESP 16; TEMP 36.4; O2SAT 97; BMI 21.9
--- NOTE | 2024-04-22 11:00 | EX.ED.DYSGE1 ---
HPI History of Present Illness Chief Complaint: Syncope PFSH PFSH Medical History Wears glasses Post-menopausal Easy bruising Back pain Non-smoker History of stress test History of irregular heartbeat Right rotator cuff tear Impingement of right shoulder Physical exam, pre-employment Dupuytrens contracture Vitamin D deficiency Osteoporosis Ischemic colitis Vitamin D deficiency Osteopenia High cholesterol H/O emotional problems Chronic bronchitis Back problem Seasonal allergies IBS (irritable bowel syndrome) Fibromyalgia Hyperlipemia Home Medications ?Medication ?Instructions ?Recorded ?Last Taken ?Type cyclobenzaprine 10 mg tablet 10 mg PO TID PRN muscle spasm #20 02/08/24 Unknown Rx tabs cholecalciferol (vitamin D3) 1,250 1,250 mcg PO QMONTH BONE LOSS #3 04/08/24 04/08/24 Rx mcg (50,000 unit) capsule caps oxycodone-acetaminophen 5 mg-325 1 tab PO Q6H PRN pain 4 days #20 04/17/24 04/21/24 Rx mg tablet (Endocet) tabs artifi.tears(hypromellose)(PF) 1.7 1 drp EACH EYE DAILY PRN dry eye(s) 04/22/24 Unknown History % eye drops with applicator famciclovir 500 mg tablet 500 mg PO BID PRN cold sores 04/22/24 Unknown History naproxen sodium 220 mg capsule 440 mg PO Q12H PRN pain 04/22/24 04/21/24 History (Aleve) Allergy/AdvReac Type Severity Reaction Status Date / Time codeine Allergy Rash Verified 04/22/24 10:32 latex Allergy Rash Verified 04/22/24 10:32 lidocaine Allergy Rash Verified 04/22/24 10:32 black cohosh AdvReac Mild Other Verified 04/22/24 10:32 morphine AdvReac Nausea Verified 04/22/24 10:32 NSAIDS (Non-Steroidal AdvReac Other Verified 04/22/24 10:32 Anti-Inflamma suture AdvReac Itching Verified 04/22/24 10:32 Family History Father Cancer Aunt Kidney disease Surgical History Hx of surgical procedure H/O tubal ligation Social History adopted: No household members: family housing: house number of children: 1 current occupational status: employed current occupation: [employer] current occupational exposures/hazards: No pets and animals: Yes history of recent travel: No sexually active: Yes Smoking Status: Never smoker second hand exposure: No alcohol intake: never substance use type: does not use caffeine: Yes what type of physical activity do you participate in: none seatbelt use: always do you feel safe at home: Yes additional social history: Spouse- Won liu for golf [employer] 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 Physical Exam Const Vital Signs: 04/22/24 10:32 04/22/24 11:29 04/22/24 11:45 Temperature 97.6 F L Temperature Source Oral Pulse Rate 70 Respiratory Rate 16 Respiratory Effort Normal Respiratory Pattern Normal Blood Pressure 155/80 H Blood Pressure Mean 105 Pulse Ox 97 96 Oxygen Delivery Method Room Air Room Air 04/22/24 12:36 04/22/24 14:44 Temperature 98.7 F Temperature Source Oral Pulse Rate 80 89 Respiratory Rate 18 14 Respiratory Effort Respiratory Pattern Blood Pressure 177/86 H 174/90 H Blood Pressure Mean 116 118 Pulse Ox 97 96 Oxygen Delivery Method Room Air Room Air MDM MDM MDM Narrative Medical decision making narrative: HISTORY OF PRESENT ILLNESS: 69-year-old female presents with concern for Monday. She notes diffuse weakness. She further states she was at her orthopedic doctor's office when she felt nauseous lightheaded, nauseous, warm and fatigued she was going to pass out. Denies any prodromal symptoms such as headache, chest pain, shortness of breath, abdominal pain. Denies any recent heavy bleeding. No recent surgery otherwise denies any VTE risk factors such as history of PE/DVT, estrogen use, unilateral leg swelling, hemoptysis, chemotherapy. Denies any chest pain or shortness of breath. Notes symptoms resolved quickly. REVIEW OF SYSTEMS: Pertinent positives: Lightheadedness, diffuse weakness Pertinent negatives: As per HPI PHYSICAL EXAM: Nursing triage notes reviewed, Vital signs reviewed Constitutional: please see mdm HENT: MMM Eyes: Pupils equal round and reactive to light, Extraocular muscles intact Neck: No stridor, no JVD, full neck ROM Lungs: Clear to auscultation, No wheezing or rales. No increased work of breathing, no conversational dyspnea, no accessory muscle use, no nasal flaring. No respiratory distress noted Heart: Regular rate and rhythm, No murmurs, No rubs and No gallops, 2+ distal pulses (radial, femoral, posterior tibial) in all extremities Abdomen: Soft, there is no tenderness, rigidity, rebound or guarding, no obvious peritoneal signs, no palpable pulsatile abdominal masses, no auscultated abdominal bruit : No CVAT Extremities: No edema Neuro: Alert and oriented x3, neuro exam at baseline, cranial nerves II through XII are intact. No pain with extraocular muscle movement. There is negative test of skew. 5 of 5 strength in upper and lower extremities in flexion extension. Intact sensation to light touch in upper and lower extremity dermatomes. No truncal or extremity ataxia. No dysdiadochokinesia. Normal gait. 2+ reflexes in upper and lower extremities. No meningeal signs. Negative Babinski. NIH of 0. Skin: No rash or lesions noted MEDICAL DECISION MAKING: Chief Complaint: Lightheadedness/diffuse weakness External records reviewed: Reviewed prior cardiovascular testing Factors affecting care: n history of fibromyalgia, IBS, Social determinants of health: none History obtained from others: none Consults: none MDM Narrative: Patient was initially hemodynamically stable, afebrile and nontoxic-appearing. Exam without focal cardiopulmonary abnormality I considered the following differential diagnosis: Arrhythmia, anemia, electrolyte disturbance, PE ALL IMAGES (IF OBTAINED) HAVE BEEN PERSONALLY REVIEWED AND INTERPRETED BY MYSELF. EKG with normal sinus rhythm rate of 72, normal axis, normal intervals, no STEMI, no sign of ARVD, Brugada syndrome or WPW, no stigmata of VTE or pericarditis noted Given recent surgery obtained a CTA to rule out PE. CT was negative High-sensitivity troponin is negative, no evidence of myocardial ischemia x 2 CBC with leukocytosis suggestive of system inflammation, no anemia or thrombocytopenia BMP without evidence of significant electrolyte abnormalities, no anion gap, no acute kidney injury. Etiology most likely vasovagal syncope. No sign of a life-limiting etiology to precipitate the patient's symptoms. The patient and/or family, caregivers express understanding. The patient and/or family, caregivers agrees with the plan. Shared decision making: I will have a discussion with the patient and or visitors regarding risk/benefits of further testing or admission. They will be made aware of of the risk/benefits inherent in this decision they will be given the opportunity to voice understanding. Total critical care time today provided was at least 0 [] minutes. This excludes separately billable procedures. Critical care time (if documented) is secondary to the patient having high probability of clinically significant/life threatening deterioration in the patient's condition which required my urgent intervention. Impression: 1. Vasovagal syncope Dispo: Discharge home This note was generated with [employer] dictation software. It may contain incorrect words, spelling, and punctuation that were not noted in review of the chart prior to signing. Lab Data Labs: Laboratory Results - last 24 hr 04/22/24 04/22/24 12:04 14:15 WBC 13.1 H RBC 4.67 Hgb 13.5 Hct 40.6 MCV 86.9 MCH 28.9 MCHC 33.3 RDW Std Deviation 39.4 RDW Coeff of Cindy 12.5 Plt Count 375 MPV 9.7 Immature Gran % (Auto) 0.400 Neut % (Auto) 85.9 H Lymph % (Auto) 7.4 L [place] % (Auto) 5.5 Eos % (Auto) 0.4 Baso % (Auto) 0.4 Absolute Neuts (auto) 11.3 H Absolute Lymphs (auto) 0.97 Nucleated RBC % 0 Sodium 137 Potassium 4.7 Chloride 101 Carbon Dioxide 25.2 Anion Gap 11 BUN 14 Creatinine 0.64 L Estim Creat Clear Calc 54.90 Est GFR (MDRD) Non-Af 96 BUN/Creatinine Ratio 21.2 H Glucose 104 H Calcium 9.6 Troponin T High Sens 6 Troponin T Hi Sens 2 Hr 7 Radiography Diagnostic Testing: Clinical Impression(s) from Imaging Studies Chest CTA 04/22/24 11:28 IMPRESSION: No evidence of pneumothorax. No pulmonary embolism seen. Subcutaneous emphysema overlying the right upper anterior and lateral chest wall. No evidence of rib fracture seen on the examination. Reading Location: [facility] Discharge Plan Triage Chief Complaint: Syncope ED Provider: Ricky Gordon Dx/Rx/DC Orders Prescriptions: No Action oxycodone-acetaminophen [Endocet] 5-325 mg tablet 1 tab PO Q6H MDD 4 PRN (Reason: pain) 4 Days Qty: 20 0RF famciclovir 500 mg tablet 500 mg PO BID PRN (Reason: cold sores) naproxen sodium [Aleve] 220 mg capsule 440 mg PO Q12H PRN (Reason: pain) Patient Comments: TAKING DUE TO RECENT SURGERY. artifi.tears(hypromellose)(PF) 1.7 % drops with applicator 1 drp EACH EYE DAILY PRN (Reason: dry eye(s)) cyclobenzaprine 10 mg tablet 10 mg PO TID PRN (Reason: muscle spasm) Qty: 20 0RF Patient Comments: PT STATES SHE ONLY USES AT BEDTIME. Rx Instructions: Take 1/2 to 1 tab up to three times daily for muscle spasm. Do not drive or operate dangerous equipment while using this medication. cholecalciferol (vitamin D3) 1,250 mcg (50,000 unit) capsule 1,250 mcg PO QMONTH Qty: 3 1RF Patient Comments: PT STATES BETWEEN AND , TOOK FIRST PART OF APRIL. UNSURE OF WHAT DAY. Primary Care Provider: Cyndee James Referrals: Cyndee James MD [Primary Care Provider] - Print Language: Croatian
--- NOTE | 2024-04-22 11:28 | CT_ITS ---
PROCEDURE: CTA CHEST W/WO CONTRAST 04/22/2024 REASON FOR EXAM: NEAR SYNCOPE, RECENT SURGERY TECHNIQUE: CTA axial imaging of the chest with intravenous contrast. Coronal and Sagittal reconstruction series were provided. CONTRAST: Isovue-300 VOLUME: 100 mLmL Gauge IV One or more dose reduction techniques were used (e.g., Automated exposure control, adjustment of the mA and/or kV according to patient size, use of iterative reconstruction technique). RADIATION DOSE SUMMARY: CTDlvol: 5.5 mGy DLP: 163.37 mGycm . COMPARISON: None. FINDINGS: There is evidence of subcutaneous emphysema overlying the right upper anterior and upper lateral chest wall Hardware: None Lymph nodes: Unremarkable Heart: Unremarkable RV/LV Diameter Ratio: Unremarkable Thoracic Aorta: Minimal calcific plaque formation. Pulmonary Vessels: Unremarkable Most Proximal Level of Embolus (if embolus present): Not applicable. Lungs and Airways: Mild emphysematous changes are present. Pleura: No pleural effusion. No pneumothorax. Upper Abdomen: Left parapelvic renal cysts. Bones: Degenerative changes of the thoracic spine. CT/CTA Chest W/WO Contrast IMPRESSION: No evidence of pneumothorax. No pulmonary embolism seen. Subcutaneous emphysema overlying the right upper anterior and lateral chest wal l. No evidence of rib fracture seen on the examination. Reading Location: [place] [id number]
[2024-04-22 11:29] VITALS: O2SAT 96
--- NOTE | 2024-04-22 11:30 | EKG12_ITS ---
Test Reason : SYNCOPE Blood Pressure : */* mmHG Vent. Rate : 72 BPM Atrial Rate : 72 BPM P-R Int : 122 ms QRS Dur : 80 ms QT Int : 364 ms P-R-T Axes : 13 79 46 degrees QTcB Int : 398 ms Normal sinus rhythm Nonspecific T wave abnormality Abnormal ECG When compared with ECG of 08-Apr-2024 07:52, No significant change was found Confirmed by JULIA ARGUELLES, SERINA ([id number]), editor continuity and script TRINITY CORREA ([id number]) on 04/24/2024 12:56:59 PM Referred By: ALEXX/BRYCE Confirmed By: SERINA DUMONT MD
[2024-04-22 12:12] LABS: Absolute Lymphocyte Count 0.97 X10^3/uL (0.83-4.51); Absolute Neutrophil Count 11.3 X10^3/uL (2.0-7.7); Basophil# 0.05 X10^3/uL; Basophil% 0.4 % (0-1); Eosinophil# 0.05 X10^3/uL; Eosinophils% 0.4 % (0-5); Hematocrit 40.6 % (37-47); Hemoglobin 13.5 g/dL (12.0-15.0); Lymphocyte # 0.97 X10^3/ul (0.83-4.51); Lymphocyte % 7.4 % (19-41); Mean Corp Hgb Conc 33.3 g/dL (32-36); Mean Corpuscular Hgb 28.9 pg (27.0-32.0); Mean Corpuscular Volume 86.9 fL (81-99); Mean Platelet Vol. 9.7 fl (6.2-12.0); Monocyte# 0.72 X10^3/uL; Monocyte% 5.5 % (0-10); NRBC Flagged by Analyzer 0 % (0-5); Neutrophil # 11.27 X10^3/uL (2.7-7.7); Neutrophil % 85.9 % (47-70); Platelet Count 375 K/mm3 (150-450); RBC Distribution Width CV 12.5 % (11.6-14.6); RBC Distribution Width SD 39.4 fl (35.1-43.9); Red Blood Count 4.67 M/mm3 (4.2-5.4); White Blood Count 13.1 K/mm3 (4.4-11.0)
[2024-04-22 12:36] VITALS: BP 177/86; PULSE 80; RESP 18; TEMP 37.1; O2SAT 97
[2024-04-22] MEDS: 0.9% Normal Saline (500mL Bag) 500 ML 999 ML IV (12:39)
[2024-04-22 12:56] LABS: Anion Gap 11 (5-15); BUN 14 mg/dL (4-19); BUN/Creat Ratio 21.2 RATIO (10-20); Calcium,Total 9.6 mg/dL (7.6-11.0); Carbon Dioxide 25.2 mmol/L (21.0-32.0); Chloride 101 mmol/L (98-108); Creatinine, Serum 0.64 mg/dL (0.70-1.20); EST Glomerular Filtration Rate 96 (>60); Glucose 104 mg/dL (70-99); Potassium 4.7 mmol/L (3.3-5.1); Sodium Level 137 mmol/L (133-145); Troponin T High Sensitivity 6 ng/L (<=14)
[2024-04-22 14:44] VITALS: BP 174/90; PULSE 89; RESP 14; O2SAT 96
[2024-04-22 15:05] LABS: Troponin T High Sens 2 HR 7 ng/L (<=14)
== END 2024-04-22 16:21 | disposition home or self-care (01) ==
LOC: ED 11:33
PROVIDERS: Emergency Provider Emergency Medicine; PCP Internal Medicine; Visit Provider Emergency Medicine
DX: R55 Syncope and collapse (principal); R53.1 Weakness; E78.00 Pure hypercholesterolemia, unspecified; R42 Dizziness and giddiness
CPT/HCPCS: 36415; 71275; 80048; 84484; 85025; 93005; 96360; 99284; Q9967; A4216

== ENCOUNTER 2024-09-03 10:30 | Outpatient (RCR) | payer MEDICARE, OTHER, SELFPAY ==
--- NOTE | 2024-05-07 11:58 | HP.PTEVAL_ITS ---
Patient's Visit Information Visit Information Visit Information: JEN BARBER is a 69 year old F referred to Physical Therapy by Dr. Álvaro Giraldo MD with a diagnosis of R sub acromial decompression and R RC repair on 04/17/24. Date of Evaluation: 05/07/24 Physical Therapist: OSMANY Duque Visit Plan Frequency: 2x /Week Duration: 3 Months Plan: We discussed PROM only for at least the for the first 6 weeks, to use her sling when she needs support 2X/ week for 12 weeks for R shoulder PROM for first 6 weeks (until 05/29), then begin AAROM. At 8 weeks (June) may begin isometrics and then at 10 weeks may begin RC strengthening (06-26) with HEP HEP: scapular squeezes, Pendulums Subjective Subjective: Pt thinks that she was over use her arm lifting buckets, timming trees etc. She thinks that her pain started winter and then her Chiropractor sent her to Dr and then did PT and then did MRI which showed torn RC tear and impingement. Pt had R sub acromial decompression and R RC repair on 04/17/24. Pt will be 3 weeks post op tomm. She is not wearing her sling anymore. She has started to use it some as the Dr did not give her any instruction. Pain R shoulder pain: Pain Intensity (Out of 10): 3 Objective Objective: Pt is L handed L shoulder flexion PROM 123 and ER 32 Instructed pt in pendulums, AA bicep curls, and scapular retraction Balance/Special Test Scores Quick DASH Score: 81.8175 Goals Goal 1:: I HEP Goal Time Frame: 6-8 Weeks Goal 2:: Increase AROM to 160 degrees elevation by discharge Goal Time Frame: 6-8 Weeks Goal 3:: Increase R shoulder strength to be close to equal to the L Goal Time Frame: 8-12 Weeks Goal 4:: Be able to use her R arm pain free with chores around the house Goal Time Frame: 8-12 Weeks Rehabilitation Potential Rehabilitation Potential: Good Anticipated Interventions Patient/Client Instruction: Educate patient on: Condition and Plan of Care For the Purpose of:: To decrease pain, To decrease swelling/inflammation, To increase ROM, To improve nutrient delivery to tissue, To improve muscle performance and motor function, To improve ability to perform ADL's, To increase tolerance to activity/condition/position, To improve performance and independence with ADL's, To decrease level of supervision to perform tasks, To improve ability of physical actions for home/community/work/leisure, To improve health of tissue, To decrease soft tissue restriction and To increase flexib ility/ROM Therapeutic Exercise to Include: Strength training, Postural training, Flexibilty training, Neuromotor development, Passive ROM, Active ROM and Scapular Strength/Stabilization For the Purpose of:: To decrease pain, To decrease swelling/inflammation, To increase ROM, To improve nutrient delivery to tissue, To increase oxygenation perfusion, To improve muscle performance and motor function, To improve ability to perform ADL's, To increase tolerance to activity/condition/position, To improve performance and independence with ADL's, To improve ability of physical actions for home/community/work/leisure, To improve health of tissue, To decrease soft tissue restriction and To increase flexibility/ROM Manual Therapy Techniques to Include: Passive ROM For the Purpose of:: To decrease pain, To decrease swelling/inflammation, To increase ROM and To improve nutrient delivery to tissue Cryotherapy (ice pack, ice massage): Yes Thermo therapy (hot pack): Yes For the Purpose of:: To decrease pain, To decrease swelling/inflammation, To increase ROM and To improve nutrient delivery to tissue Text: Thank you for the opportunity to evaluate your patient. For Medicare and Medicare HMO plans, please review the plan of care and approve it. It will need to be FAXED BACK to us at [phone] for Medicare purposes. For Medicare only, by signing this I certify the plan of care. Please let me know if there are questions or concerns regarding this plan of care. Physician Signature: Date:
--- NOTE | 2024-06-05 14:10 | HP.PTREVAL ---
Re-Evaluation Intro: Dr. Álvaro Giraldo MD, It has been my pleasure to treat JEN BARBER over the last 9 visits for R sub acromial decompression and R RC repair on 04/17/24. Please see the progress note below for an update on the physical therapy plan of care! Subjective Subjective: She gets shoulder blade pain and top of the shoulder pain depending on what she has done. She is 7 weeks post op. She has a little more movement than she did. She feels really good unless it hurts. She got a shot for pain. She stopped doing the pendulums 3X/ day. She is able to help herself get dressed now. she dusted the other day but she wore her sling. Objective Objective/Function: R shoulder AROM: R shoulder flexion 92 R shoulder ER 20 R shoulder ABD 85 Pt is tight at end range flexion with some pain. Tight at end range ER with pain as well Plan Plan Plan: Continue to push ROM....advance AAROM and OK to start light strengthening when ROM and AAROM have progressed 2X/ week for 12 weeks for R shoulder PROM for first 6 weeks (until 05/29), then begin AAROM. At 8 weeks (June) may begin isometrics and then at 10 weeks may begin RC strengthening (06-26) with HEP HEP: scapular squeezes, Pendulums Balance/Gait/Functional tests Balance/Special Test Scores Quick DASH Score: 75.0000 Goals Goals Goal 1:: I HEP Goal Time Frame: 6-8 Weeks Goal Progress: Progressing Goal 2:: Increase AROM to 160 degrees elevation by discharge Goal Time Frame: 6-8 Weeks Goal Progress: Progressing Goal 3:: Increase R shoulder strength to be close to equal to the L Goal Time Frame: 8-12 Weeks Goal 4:: Be able to use her R arm pain free with chores around the house Goal Time Frame: 8-12 Weeks Goal Progress: Progressing Anticipated Interventions Anticipated Interventions Patient/Client Instruction: Educate patient on: Condition and Plan of Care For the Purpose of:: To decrease pain, To decrease swelling/inflammation, To increase ROM, To improve nutrient delivery to tissue, To improve muscle performance and motor function, To improve ability to perform ADL's, To increase tolerance to activity/condition/position, To improve performance and independence with ADL's, To decrease level of supervision to perform tasks, To improve ability of physical actions for home/community/work/leisure, To improve health of tissue, To decrease soft tissue restriction and To increase flexibility/ROM Therapeutic Exercise to Include: Strength training, Postural training, Flexibilty training, Neuromotor development, Passive ROM, Active ROM and Scapular Strength/Stabilization For the Purpose of:: To decrease pain, To decrease swelling/inflammation, To increase ROM, To improve nutrient delivery to tissue, To increase oxygenation perfusion, To improve muscle performance and motor function, To improve ability to perform ADL's, To increase tolerance to activity/condition/position, To improve performance and independence with ADL's, To improve ability of physical actions for home/community/work/leisure, To improve health of tissue, To decrease soft tissue restriction and To increase flexibility/ROM Manual Therapy Techniques to Include: Passive ROM For the Purpose of:: To decrease pain, To decrease swelling/inflammation, To increase ROM and To improve nutrient delivery to tissue Cryotherapy (ice pack, ice massage): Yes Thermo therapy (hot pack): Yes For the Purpose of:: To decrease pain, To decrease swelling/inflammation, To increase ROM and To improve nutrient delivery to tissue Re-Evaluation Ending Re-evaluation ending: Please do not hesitate to contact me at [phone] by phone or if you have questions or concerns regarding this new plan of care! Sincerely, OSMANY Duque
--- NOTE | 2024-07-03 16:23 | HP.PTREVAL_ITS ---
Re-Evaluation Intro: Dr. Álvaro Giraldo MD, It has been my pleasure to treat JEN BARBER over the last 15 visits for R sub acromial decompression and R RC repair on 04/17/24. Please see the progress note below for an update on the physical therapy plan of care! Subjective Subjective: She is still having pain with stretches over her head and ER. She still can not go behind her back because of pain and it feels like it will not move. April [address] did not give her any indication if her pain was normal. Objective Objective/Function: R shoulder AROM: flexion 112 ABD 91 IR L5 ER 39 PROM: painful end feel into flexion and ER. Plan Plan Plan: ADD S/L ER/mid rows/double ER and other strengthening as tolerated next week Continue to push ROM....advance AAROM and light strengthening 2X/ week for 12 weeks for R shoulder PROM for first 6 weeks (until 05/29), then begin AAROM. At 8 weeks (June) may begin isometrics and then at 10 weeks may begin RC strengthening (06-26) with HEP HEP: scapular squeezes, Pendulums Balance/Gait/Functional tests Balance/Special Test Scores Quick DASH Score: 70.4525 Goals Goals Goal 1:: I HEP Goal Time Frame: 6-8 Weeks Goal Progress: Progressing Goal 2:: Increase AROM to 160 degrees elevation by discharge Goal Time Frame: 6-8 Weeks Goal Progress: Progressing Goal 3:: Increase R shoulder strength to be close to equal to the L Goal Time Frame: 8-12 Weeks Goal 4:: Be able to use her R arm pain free with chores around the house Goal Time Frame: 8-12 Weeks Goal Progress: Progressing Anticipated Interventions Anticipated Interventions Patient/Client Instruction: Educate patient on: Condition and Plan of Care For the Purpose of:: To decrease pain, To decrease swelling/inflammation, To increase ROM, To improve nutrient delivery to tissue, To improve muscle performance and motor function, To improve ability to perform ADL's, To increase tolerance to activity/condition/position, To improve performance and independence with ADL's, To decrease level of supervision to perform tasks, To improve ability of physical actions for home/community/work/leisure, To improve health of tissue, To decrease soft tissue restriction and To increase flexibility/ROM Therapeutic Exercise to Include: Strength training, Postural training, Flexibilty training, Neuromotor development, Passive ROM, Active ROM and Scapular Strength/Stabilization For the Purpose of:: To decrease pain, To decrease swelling/inflammation, To increase ROM, To improve nutrient delivery to tissue, To increase oxygenation perfusion, To improve muscle performance and motor function, To improve ability to perform ADL's, To increase tolerance to activity/condition/position, To improve performance and independence with ADL's, To improve ability of physical actions for home/community/work/leisure, To improve health of tissue, To decrease soft tissue restriction and To increase flexibility/ROM Manual Therapy Techniques to Include: Passive ROM For the Purpose of:: To decrease pain, To decrease swelling/inflammation, To increase ROM and To improve nutrient delivery to tissue Cryotherapy (ice pack, ice massage): Yes Thermo therapy (hot pack): Yes For the Purpose of:: To decrease pain, To decrease swelling/inflammation, To increase ROM and To improve nutrient delivery to tissue Re-Evaluation Ending Re-evaluation ending: Please do not hesitate to contact me at [phone] by phone or Fax: if you have questions or concerns regarding this new plan of care! Sincerely, OSMANY Duque
--- NOTE | 2024-07-29 10:03 | HP.PTREVAL_ITS ---
Re-Evaluation Intro: Dr. Álvaro Giraldo MD, It has been my pleasure to treat JEN BARBER over the last 23 visits for R sub acromial decompression and R RC repair on 04/17/24. Please see the progress note below for an update on the physical therapy plan of care! Subjective Subjective: Pt reports that she has some pain right after therapy but it was only a day. She thinks it is because of the stretching but she can see a lot more movement in her arm. She is able to do more than what she could do a month ago. She is still limited behind her back and overhead. Objective Objective/Function: Strength: R shoulder flex 4.9 and L 7.6 R shoulder ER 6 and L 7.5 R shoulder IR 8.5 and L 7.7 R shoulder AROM: R shoulder flex 132 R shoulder ABD 101 IR L5 ER 39 Plan Plan Plan: Pt is doing well. Continue to gain end range motion to tolerance (flexion and IR especially) and strength, posture Balance/Gait/Functional tests Balance/Special Test Scores Quick DASH Score: 47.7250 Goals Goals Goal 1:: I HEP Goal Time Frame: 6-8 Weeks Goal Progress: Progressing Goal 2:: Increase AROM to 160 degrees elevation by discharge Goal Time Frame: 6-8 Weeks Goal Progress: Progressing Goal 3:: Increase R shoulder strength to be close to equal to the L Goal Time Frame: 8-12 Weeks Goal 4:: Be able to use her R arm pain free with chores around the house Goal Time Frame: 8-12 Weeks Goal Progress: Progressing Anticipated Interventions Anticipated Interventions Patient/Client Instruction: Educate patient on: Condition and Plan of Care For the Purpose of:: To decrease pain, To decrease swelling/inflammation, To increase ROM, To improve nutrient delivery to tissue, To improve muscle performance and motor function, To improve ability to perform ADL's, To increase tolerance to activity/condition/position, To improve performance and independence with ADL's, To decrease level of supervision to perform tasks, To improve ability of physical actions for home/community/work/leisure, To improve health of tissue, To decrease soft tissue restriction and To increase flexibility/ROM Therapeutic Exercise to Include: Strength training, Postural training, Flexibilty training, Neuromotor development, Passive ROM, Active ROM and Scapular Strength/Stabilization For the Purpose of:: To decrease pain, To decrease swelling/inflammation, To increase ROM, To improve nutrient delivery to tissue, To increase oxygenation p erfusion, To improve muscle performance and motor function, To improve ability to perform ADL's, To increase tolerance to activity/condition/position, To improve performance and independence with ADL's, To improve ability of physical actions for home/community/work/leisure, To improve health of tissue, To decrease soft tissue restriction and To increase flexibility/ROM Manual Therapy Techniques to Include: Passive ROM For the Purpose of:: To decrease pain, To decrease swelling/inflammation, To increase ROM and To improve nutrient delivery to tissue Cryotherapy (ice pack, ice massage): Yes Thermo therapy (hot pack): Yes For the Purpose of:: To decrease pain, To decrease swelling/inflammation, To increase ROM and To improve nutrient delivery to tissue Re-Evaluation Ending Re-evaluation ending: Please do not hesitate to contact me at [phone] by phone or if you have questions or concerns regarding this new plan of care! Sincerely, Noa Hand, MPT
--- NOTE | 2024-12-11 13:20 | HP.PT.NRP ---
Patient Information Patient Information: JEN BARBER was seen in my office for initial evaluation on 05/07/24. The following Plan of Care was established for this patient: POC Established Initial Frequency: 2x /Week Initial Duration: 3 Months Anticipated Interventions Patient/Client Instruction: Educate patient on: Condition and Plan of Care For the Purpose of:: To decrease pain, To decrease swelling/inflammation, To increase ROM, To improve nutrient delivery to tissue, To improve muscle performance and motor function, To improve ability to perform ADL's, To increase tolerance to activity/condition/position, To improve performance and independence with ADL's, To decrease level of supervision to perform tasks, To improve ability of physical actions for home/community/work/leisure, To improve health of tissue, To decrease soft tissue restriction and To increase flexibility/ROM Therapeutic Exercise to Include: Strength training, Postural training, Flexibilty training, Neuromotor development, Passive ROM, Active ROM and Scapular Strength/Stabilization For the Purpose of:: To decrease pain, To decrease swelling/inflammation, To increase ROM, To improve nutrient delivery to tissue, To increase oxygenation perfusion, To improve muscle performance and motor function, To improve ability to perform ADL's, To increase tolerance to activity/condition/position, To improve performance and independence with ADL's, To improve ability of physical actions for home/community/work/leisure, To improve health of tissue, To decrease soft tissue restriction and To increase flexibility/ROM Manual Therapy Techniques to Include: Passive ROM For the Purpose of:: To decrease pain, To decrease swelling/inflammation, To increase ROM and To improve nutrient delivery to tissue Cryotherapy (ice pack, ice massage): Yes Thermo therapy (hot pack): Yes For the Purpose of:: To decrease pain, To decrease swelling/inflammation, To increase ROM and To improve nutrient delivery to tissue Last Seen Last Seen: This patient was last seen in our office 09/03/24. Pertinent comments regarding their Physical therapy will appear below: DC PT At this point I will be discontinuing this patient from physical therapy. I would be happy to see this patient again in the future if found appropriate by the physician. Thank you! Noa Hand, MPT Balance/Gait/Functional tests Balance/Special Test Scores Quick DASH Score: 47.7250
== END 2024-09-03 19:00 | disposition home or self-care (01) ==
LOC: PT 10:30
PROVIDERS: PCP Internal Medicine; Referring Provider Orthopaedic Surgery Sports Medicine; Visit Provider Orthopaedic Surgery Sports Medicine
DX: M25.511 Pain in right shoulder (principal); Z98.890 Other specified postprocedural states
CPT/HCPCS: 97110; 97140; 97161; 97530

== ENCOUNTER → 2024-09-03 | Outpatient (CLI) | payer MEDICARE, OTHER, SELFPAY ==
--- NOTE | 2024-09-03 09:35 | RAD_ITS ---
PROCEDURE: L/S SPINE COMP/W BENDING VIEWS 09/03/2024 REASON FOR EXAM: OTHER INTERVERTEBRAL DISC DEGENERATION, LUMBOSACRAL REGION WITH D TECHNIQUE: L/S SPINE COMP/W BENDING VIEWS COMPARISON: No FINDINGS: Mild L3 through S1 facet arthritis. Relatively preserved disc spaces. No abnormal motion with flexion/extension. Mild S shaped scoliosis. No acute bone or soft tissue pathology. RAD/L/S Spine Comp/w Bending Views IMPRESSION: Lumbar spine scoliosis and degeneration. [facility]
--- NOTE | 2024-09-03 09:35 | RAD_ITS ---
PROCEDURE: SACRUM-COCCYX MIN 2 VIEWS 09/03/2024 REASON FOR EXAM: SACROILIITIS TECHNIQUE: SACRUM-COCCYX MIN 2 VIEWS COMPARISON: None FINDINGS: There is evidence of degenerative changes of the sacroiliac joints bilaterally. No erosive changes are seen. No evidence of fracture. RAD/Sacrum-Coccyx min 2 Views IMPRESSION: Degenerative changes of both sacroiliac joints. Reading Location: [id number]
[2024-09-03 09:49] LABS: Hematocrit 45.2 % (37-47); Hemoglobin 15.6 g/dL (12.0-15.0); Immature Granulocytes Count 0.020 X10^3/uL (0.0-0.0); Mean Corp Hgb Conc 34.5 g/dL (32-36); Mean Corpuscular Volume 88.1 fL (81-99); Mean Platelet Vol. 10.1 fl (6.2-12.0); NRBC Flagged by Analyzer 0 % (0-5); Platelet Count 414 K/mm3 (150-450); RBC Distribution Width CV 12.3 % (11.6-14.6); RBC Distribution Width SD 39.7 fl (35.1-43.9); Red Blood Count 5.13 M/mm3 (4.2-5.4); White Blood Count 6.9 K/mm3 (4.4-11.0)
[2024-09-03 10:38] LABS: Cholesterol 318 mg/dL (<=200); Low Density Lipoprotein Calc. 224 mg/dL; Magnesium 2.1 mg/dL (1.5-2.2); Triglycerides 132 mg/dL; Very Low Density Lipoprotein 26 mg/dL (5-40); Vitamin B12 171 pg/mL (180-914); Vitamin D,25 Hydroxy 44.3 ng/mL (30-100); cholesterol:hdl ratio screen 4.70
[2024-09-03 10:49] LABS: AST(SGOT) 20 U/L (<=31); Alanine Aminotransfer ALT/SGPT 12 U/L (<=34); Albumin, Serum 4.6 g/dL (3.4-4.8); Alkaline Phosphatase 113 U/L (35-104); Anion Gap 12 (5-15); BUN 13 mg/dL (4-19); BUN/Creat Ratio 19.1 RATIO (10-20); Calcium,Total 9.6 mg/dL (7.6-11.0); Carbon Dioxide 25.1 mmol/L (21.0-32.0); Chloride 103 mmol/L (98-108); Globulin 2.8 g/dL (2.2-4.2); Glucose 99 mg/dL (70-99); Potassium 4.3 mmol/L (3.3-5.1)
== END | disposition home or self-care (01) ==
LOC: LAB 09:19
PROVIDERS: PCP Internal Medicine; Referring Provider Internal Medicine; Visit Provider Internal Medicine
DX: Z13.220 Encounter for screening for lipoid disorders (principal); M51.372 Other intervertebral disc degeneration, lumbosacral region with discogenic back pain and lower extremity pain; M46.1 Sacroiliitis, not elsewhere classified; E78.00 Pure hypercholesterolemia, unspecified; E55.9 Vitamin D deficiency, unspecified; M81.0 Age-related osteoporosis without current pathological fracture; E53.8 Deficiency of other specified B group vitamins
CPT/HCPCS: 36415; 72114; 72220; 80053; 80061; 82306; 82607; 83735; 84443; 85025

== ENCOUNTER → 2025-01-28 | Outpatient (CLI) | payer MEDICARE, OTHER, SELFPAY ==
--- NOTE | 2025-01-28 12:49 | MRI_ITS ---
PROCEDURE: SPINE LUMBAR (ROUTINE) 01/28/2025 REASON FOR EXAM: Lumbar radiculopathy TECHNIQUE: Procedure Code: MRISPL Modality: MR Procedure: SPINE LUMBAR (ROUTINE) COMPARISON: None available. FINDINGS: For the purposes of this report, the most caudal rectangular vertebral body will be designated L5. The next most caudal trapezoidal shaped vertebral body will be designated S1. The intervening disc at the lumbosacral angle is designated L5-S1. The normal lumbar lordosis is maintained. The lumbar vertebral bodies are normal in height. The lumbar vertebral bodies are normal in alignment. The lumbar bone marrow signal is within normal limits. Multilevel disc desiccation. There is no evidence of signal abnormality in the imaged distal spinal cord. The conus medullaris terminates at the level of L1. T12-L1: No significant spinal canal stenosis or neural foraminal narrowing. L1-L2: No significant spinal canal stenosis or neural foraminal narrowing. L2-L3: No significant spinal canal stenosis or neural foraminal narrowing. L3-L4: Disc bulge flattens the ventral thecal sac. No significant neural foraminal narrowing. L4-L5: Disc bulge flattens the ventral thecal sac. No significant neural foraminal narrowing. L5-S1: No significant spinal canal stenosis or neural foraminal narrowing. The posterior paraspinal muscles are intact. MRI/Spine Lumbar (Routine) IMPRESSION: No high-grade spinal canal or neural foraminal stenosis in the lumbar spine. Reading Location: [id number]
== END | disposition home or self-care (01) ==
LOC: MRI 12:47
PROVIDERS: PCP Internal Medicine; Referring Provider Anesthesiology Pain Medicine; Visit Provider Anesthesiology Pain Medicine
DX: M51.372 Other intervertebral disc degeneration, lumbosacral region with discogenic back pain and lower extremity pain (principal); M54.17 Radiculopathy, lumbosacral region
CPT/HCPCS: 72148